=== PATIENT | male | born 1940 | race Caucasian/White ===

== ENCOUNTER 2021-12-23 14:20 | Emergency (ER) | payer MEDICARE, SELFPAY ==
--- NOTE | ~2021-12-23 | CT_ITS ---
EXAMINATION: CT HEAD WITHOUT CONTRAST CLINICAL INFORMATION: Fall, altered mental status. COMPARISON: MR brain dated from 03/17/2020. TECHNIQUE: Contiguous axial imaging was performed from the skull base to vertex without intravenous administration of contrast. This CT examination was performed using dose optimization techniques as appropriate, variously including the following: *Automated exposure control *Adjustment of mA and/or kV according to patient size (this includes techniques or standardized protocols for targeted exams where dose is matched to indication/reason for exam; i.e. extremities or head) *Use of iterative reconstruction technique DLP: 699 mGy-cm FINDINGS: There is no evidence of acute intracranial hemorrhage or edematous territorial infarction. Scattered hypoattenuation in the periventricular and deep white matter are consistent with moderate microangiopathy. Wade-white matter differentiation is preserved. Proportional prominence of the ventricles and sulcal spaces. No evidence for obstructive hydrocephalus. No abnormal mass effect or midline shift. No extra-axial fluid collections. No acute soft tissue or osseous abnormalities. Mucosal thickening of the ethmoidal air cells and left frontal sinus. Leftward nasal septal deviation. Bilateral lens extraction. CT/CT head/brain wo con IMPRESSION: No evidence of acute intracranial hemorrhage or edematous territorial infarction.
[2021-12-23 15:06] VITALS: BP 137/65; PULSE 74; RESP 14; TEMP 36.7; O2SAT 97; BMI 22.9
--- NOTE | 2021-12-23 15:25 | ED.GENADULT ---
HPI - General Adult General Chief complaint: General Medical Stated complaint: AMS Time Seen by Provider: 12/23/21 15:25 Source: EMS Mode of arrival: EMS Limitations: altered mental status History of Present Illness HPI narrative: Patient is brought to the emergency room by EMS. Per EMS, earlier today, elderly services where the patient and his 's residence checking on them. It is unclear why they were asked to bring the back to the emergency room. Per EMS, the patient started screaming, seemed altered, there was no one else at home, they felt that the patient could not be left alone since he was altered. On arrival to the emergency room, patient is calm, cooperative. Of note, the patient and his were here yesterday. The patient's was the patient yesterday for a fall. Who was admitted to the hospitalist service. Mr. Lynch ask the hospitalist to discharge Mrs. Lynch home. The left against medical advice despite the doctor's warnings. Also, I was informed by the staff, that yesterday while the patient's was in the room, Mr. Lynch fell out of his wheelchair. Per Mr. Lynch, he remembers that he was trying to get up from his wheelchair, the breaks were not secured, and he fell to the ground. Per patient's words, he did not fall, he slid out of his chair. The staff reports that they tried to convince the patient to check in for evaluation. Patient was alert and oriented x3, and he refused to check in. Today patient has no complaints. Patient is agreeable to get a workup Unfortunately, patient is a poor historian as well. Patient seems forgetful. Patient has assisted medications with him. Patient is taking carbidopa/ levodopa. Patient states that he has no medical history including Parkinson's. Related Data Allergies Allergy/AdvReac Type Severity Reaction Status Date / Time No Known Allergies Allergy Unverified 07/03/20 15:18 [No Known Allergies*] Review of Systems Review of Systems: Constitutional : No Weight loss, No Fever, No Chills, No Night Sweats, No Fatigue, No Malaise ENT/Mouth : No Hearing loss, No Ear Pain, No Nasal Congestion, No Sinus Pain, No Hoarseness, No sore throat, No Rhinorrhea, No Swallowing Difficulty Eyes: No Eye Pain, No Swelling, No Redness, No Foreign Body, No Discharge, No Vision Changes Cardiovascular : No Chest Pain, No SOB, No Dyspnea on Exertion, No Orthopnea, No Edema, No Palpitations Respiratory : No Cough, No Sputum, No Wheezing, No Smoke Exposure, No Dyspnea Gastrointestinal : No Nausea, No Vomiting, No Diarrhea, No Constipation, No abdominal Pain, No Hematochezia, No Melena Genitourinary : no irregular bleeding, No Dysuria, No Urinary Frequency, No Hematuria, No Urinary Incontinence, No Urgency, No Flank Pain, No Urinary Flow Changes, No Hesitancy Musculoskeletal : No joint pain, No Myalgias, No Joint Swelling Skin : No Skin Lesions, No rash Neuro : No Weakness, No Numbness, No Paresthesias, No Loss of Consciousness, No Dizziness, No Headache Psych : No Anxiety/Panic, No Depression, No SI/HI/AH/VH Heme/Lymph: No Bruising, No Bleeding,No Lymphadenopathy Endocrine : No Polyuria, No Polydipsia, No Temperature Intolerance [facility] Past Medical History Medical History (Updated 12/23/21 @ 16:16 by Shikha Bowie MD) Hypercholesterolemia Parkinsons disease Social History Social History Advance Directives: No Advance Directives Information Provided: No Physical Exam ED Vital Signs: Vital Signs - 24 hr 12/23/21 15:06 Temperature 98.0 F Pulse Rate 74 Respiratory Rate 14 Blood Pressure 137/65 Pulse Oximetry 97 BMI result Body Mass Index 22.9 Const Other: Appearance: Alert. Oriented X3. No acute distress. Eyes: Pupils equal, round and reactive to light. ENT: Pharynx normal. Neck: Normal inspection. Neck supple. No lymph nodes noted. No crepitus CVS: Normal heart rate and rhythm. Pulses normal. Normal S1 and S2 Respiratory: No respiratory distress. Breath sounds normal. No Wheezing. No rales Abdomen: Soft and nontender. No rigidity. No distention Skin: Skin warm and dry. Normal skin color. Normal skin turgor. Extremities: No lower extremity edema. Patient is not steady on his feet. Neuro: Oriented X 3. No motor deficit. No sensory deficit. Moving all extermities. No slurred speech. Course Course Course Narrative: Patient accepted the workup including blood work, urinalysis and head CT. We are trying to get in touch with elderly services to get more information. Patient and his have no healthcare proxy or next of kin other than each other listed in the medical record Patient will likely need case management consult. Sign-out given to Dr. Dewitt Discharge Plan Discharge Clinical Impression: Fall Patient Disposition: Still a Patient
--- NOTE | 2021-12-23 15:29 | ECG_ITS ---
Test Reason : WEAKNESS Blood Pressure : / mmHG Vent. Rate : 077 BPM Atrial Rate : 077 BPM P-R Int : 174 ms QRS Dur : 124 ms QT Int : 418 ms P-R-T Axes : 055 075 009 degrees QTc Int : 473 ms Normal sinus rhythm with Premature atrial complexes Right bundle branch block Possible Lateral infarct , age undetermined Abnormal ECG No previous ECGs available Referred By: Shikha Bowie Electronically Signed By:MANISH JIMENEZ MD
--- NOTE | 2021-12-23 16:11 | MHC.CM.ED ---
Patient brought to ER via EMS. [facility] was at the house to meet with patient's Tali. EMS was called for Tali d/t AMS. When EMS arrived, patient became upset and was brought to the ER for eval. PCP is at [facility] in [place]. No HCP on file at [facility]. No HCP on file at PCP's office. Work up is pending. Continue to monitor for d/c needs.
[2021-12-23 16:33] LABS: MANUAL DIFF FLAG NO
[2021-12-23 16:37] LABS: Basophils Percent Auto 0.5 % (0-2); Eosinophils Absolute Auto 0.1 X10*3/uL (0.0-0.4); Eosinophils Percent Auto 1.4 % (0-4); Hematocrit 41.6 % (42.0-52.0); Hemoglobin 13.6 g/dl (14.0-18.0); Imm Gran Abs Auto 0.02 X10*3/uL (0.00-0.03); Imm Gran Pct Auto 0.2 % (0.0-0.4); Lymphocytes Percent Auto 24.3 % (20-40); Mean Corpuscular HGB Conc 32.7 g/dl (31.0-36.0); Mean Corpuscular Hemoglobin 29.2 pg (27.0-33.0); Mean Corpuscular Volume 89.3 fL (80.0-98.0); Mean Platelet Volume 9.6 fL (9.4-12.4); Monocytes Absolute Auto 0.6 X10*3/uL (0.1-1.2); Monocytes Percent Auto 7.6 % (2-11); Neutrophils Absolute Auto 5.4 x10*3/uL (2.0-8.3); Platelet Count 258 X10*3/uL (160-400); Red Blood Count 4.66 X10*6/uL (4.60-5.80); Red Cell Distribution Width 13.2 % (11.0-16.0); White Blood Count 8.1 X10*3/uL (4.8-10.8)
[2021-12-23 16:49] LABS: Alanine Aminotransferase 16 U/L (0-40); Albumin Level 4.1 g/dL (3.5-5.0); Alkaline Phosphatase 70 U/L (39-117); Anion Gap 10 (12-20); Aspartate Amino Transferase 17 U/L (5-37); Bilirubin Direct 0.4 mg/dL (0.0-0.5); Bilirubin Total 0.9 mg/dL (0.0-1.0); Blood Urea Nitrogen 24 mg/dL (9-16); Calcium 9.1 mg/dL (8.4-10.2); Carbon Dioxide 28 mmol/L (22-29); Chloride 106 mmol/L (96-108); Creatinine Clr Calc Pharmacy 59.2; Estimated Glomerular Filt Rate > 60; Glucose Random 179 mg/dL (60-115); Sodium 140 mmol/L (135-145); Total Protein 6.9 g/dL (6.5-8.0)
[2021-12-23 17:28] VITALS: BP 136/69; PULSE 68; RESP 18; TEMP 36.8; O2SAT 96
--- NOTE | 2021-12-23 18:42 | MHC.CM.ED ---
CM met with patient. Pt is A&Ox3. Pt tells CM he has a walker and a cane. He is fully vaccinated and boosted with Pfizer against Covid19. He tells CM he has meals on wheels and his neighbor does lawn care and snow removal. Pt still drives. Reviewed HCP. Pt acknowledges understanding and requests that his daughter, Munira Paul ([phone]) be his HCP. Forms reviewed and signed per protocol. Copies given and uploaded into [facility]. CM to follow for d/c needs.
--- NOTE | 2021-12-23 18:47 | MHC.CM.ED ---
Dr Dewitt spoke with Munira Paul, daughter and HCP via speaker phone with CM present. Discussed with patient his 's care and hx at [facility] over past 2 days, including his concern that she had a FL and needs further observation, and will be admitted. Also discussed that as mandated reporters, the hospital must file with elder at risk when their are concerns. There were concerns because the patient and his decided that she should sign out AMA yesterday. Munira is agreeable to her mother being hospitalized. Dr Dewitt also expressed concerns over patients capacity, and Munira felt that her father could make his own decisions and did not need a psychiatry consult for capacity. Munira expressed concerns regarding her father getting home tonight, and requested that a cab be provided that could help her father into the home. Explained that hospital could not ensure that he father had help getting into his home. Munira asked that CM obtain his father's neighbor's telephone number so she can request that he provide transportation home. CM provided telephone number, Daniel ([phone]). Awaiting return call regarding transportation home. CM to follow for d/c needs.
[2021-12-23 18:53] LABS: Appearance Urine CLEAR; Color Urine YELLOW; Glucose Urine UA NEG (NEG); Leukocyte Esterase Urine NEG (NEG); Nitrite Urine NEG (NEG); UACC Culture Trigger NO; Urine Blood 1+ (NEG); Urine Ketones 5 MG/DL (NEG); Urine Protein TRACE MG/DL (NEG-TRACE)
[2021-12-23 18:57] LABS: Squamous Epithelial Cell Urine 1+ /LPF; WBC Urine 0-2 /HPF (0-4)
--- NOTE | 2021-12-23 19:36 | MHC.CM.ED ---
Pt to be d/c home. Neighbor will provide transportation. CM spoke with daughter, Munira, and son, Florencio. They both tell CM that they have a family plan for increased care for their parents as warranted. There are funds to care for them. Daughter visits twice a week and provides home services. Plan is for Munira to provide live in care for her parents. Munira can composite layup worker. Munira will be in from [place] in the morning. Plan is to stay till Tuesday. Munira given CM contact information. Pt awaiting ride home.
--- NOTE | 2021-12-23 19:52 | PHA.MEDREC ---
Addendum entered by Shravan Argueta [facility] 12/23/21 19:52: PATIENT BEING DISCHARGED HOME, MED REC WAS NOT NECESSARY AND RESULTED IN A WASTE OF TIME FOR ALL INVOLVED. Original Note: Pharmacy Consult ? Medication Reconciliation Pharmacy has completed the medication reconciliation.
== END 2021-12-23 20:04 | disposition home or self-care (01) ==
PROVIDERS: Emergency Medicine; Emergency Provider Emergency Medicine Emergency Medical Services; PCP Physician Assistant
DX: S09.90XA Unspecified injury of head, initial encounter (principal); R41.82 Altered mental status, unspecified; G44.309 Post-traumatic headache, unspecified, not intractable; W05.0XXA Fall from non-moving wheelchair, initial encounter; Y93.9 Activity, unspecified; Y92.9 Unspecified place or not applicable; Y99.9 Unspecified external cause status; Z79.899 Other long term (current) drug therapy
CPT/HCPCS: 36415; 70450; 80048; 80076; 81001; 85025; 93005; 99284

== ENCOUNTER → 2022-12-03 09:03 | Outpatient (BNVA) | payer MEDICARE, SELFPAY | PROVIDERS: PCP Physician Assistant; Visit Provider Psychiatry & Neurology Neurology | DX: G20 Parkinson's disease (principal); R40.0 Somnolence; R53.1 Weakness | CPT/HCPCS: 99202 ==

== ENCOUNTER 2023-07-04 09:22 | Outpatient (AMB) | payer MEDICARE, SELFPAY ==
--- NOTE | 2023-07-04 09:32 | A.OFFVIS_ITS ---
Intake Vital Signs 07/04/23 09:37 Weight 149 lb 6 oz BP 92/40 L Blood Pressure Location Rt brachial Position Sitting Pulse 57 Pulse Source Pulse Oximeter Pulse Oximetry (%) 95 Oxygen Delivery Method Room Air Intake Visit Reasons: 3m follow up PARKINSONS-lvm Intake Note: F/U PArkinson Connie Scratcher Required: No Allergies No Known Allergies [No Known Allergies*] Allergy (Unverified 07/04/23 09:32) Medication List - Last Reconciled 07/04/23 by Jacque Mtz MD albuterol sulfate 90 mcg/actuation 2 puffs inhalation Q4H PRN ammonium lactate 12% appl topical carbidopa-levodopa 25-100 mg 1 tab PO TID docusate sodium 100 mg PO BEDTIME fluticasone propionate 110 mcg/actuation (Flovent HFA) 1 puff inhalation BID gabapentin 100 mg PO TID ketoconazole 2% 1 appl topical tamsulosin 0.8 mg PO BEDTIME valsartan 160 mg PO DAILY HPI HPI Comments History of Present Illness Details 82y/o Right handed male comes for [facility] follow up of parkinsonism.He noticed mild improvement with increase in carbidopa /levodopa 25/100 qid .He did not like PT at [facility]. He was diagnosed 2 1/2 years ago when her presented with tremors by Dr. Ray. The tremors are mostly in his left . He also has memory issues and tries to compensate by taking notes.He has excessive daytime sleepiness. He also has vivid dreams and some acting out.He has hypophonia, drooling. He is worried but not depressed. He has anxiety.He feels his handwriting is sloppier.He is slower in his activities. He has had multiple falls . His balance is off. He uses a walker now. He denies hallucinations. No dizziness. He has constipation- uses OTC stool softener.He has urinary frequency and has accidents. He had a mild head injury 3 years ago.No exposure to neuroleptics. [facility] Medical History Parkinson's disease Aortic stenosis Lumbar spine pain Hypothyroidism COPD (chronic obstructive pulmonary disease) Peptic ulcer Renal calculi HTN (hypertension) Diabetes Prostate CA Parkinsons disease Hypercholesterolemia Family History Mother PCOS (polycystic ovarian syndrome) Social History Alcohol intake: never Patient Tobacco Use Status: Never used Tobacco Use of substances other than those prescribed or required for medical reasons: No Physical Exam Vital Signs: Last Vital Signs Pulse 57 07/04/23 09:37 BP 92/40 L 07/04/23 09:37 Pulse Ox 95 07/04/23 09:37 Oxygen Delivery Method Room Air 07/04/23 09:37 Const General: cooperative and comfortable Nutritional Appearance: average body habitus Orientation/consciousness: patient oriented x3 Limitations: physical limitations HEENT Head: Yes normal to inspection Neuro Other: Moderately decreased facial expression and blink Left UE mild rest tremors Chava cogwheel rigidity L>R Fine finger movements- severely decreased L>R Foot taps- severely decreased L>R Moderate hypophonia Gait- stooped, difficulty getting up from chair , small steps with walker , difficulty turning General: patient oriented x3 and moves all extremities Cranial nerves: Yes Facial sensation intact/muscles of mastication intact, Yes Bilaterally intact EOM present, Yes Nystagmus not present, Yes Normal facial strength present, Yes Midline tongue present, Yes Symmetric palate elevation present and Yes Ability to bilaterally elevate shoulders present Cognition (Neuro): normal cognition Coordination: [id number] test normal Psych Appearance: grossly normal Assessment & Plan Assessment & Plan (1) Parkinson's disease: Code(s): G20 - Parkinson's disease Plan Continue sinemet 25/100 qid Increase fluids Increase physical activity . will consider PT if patient agrees. Medications: Changed From carbidopa-levodopa 25-100 mg 1 tab PO QID 120 tabs 3RF To carbidopa-levodopa 25-100 mg 1 tab PO TID Coding Level of Care Code Est Pt Level 4 (24099) Diagnoses Parkinson's disease G20
[2023-07-04 09:37] VITALS: BP 92/40; PULSE 57; O2SAT 95
== END 2023-07-04 10:22 | disposition home or self-care (01) ==
PROVIDERS: Visit Provider Psychiatry & Neurology Neurology
DX: G20 Parkinson's disease (principal)
CPT/HCPCS: 99214

== ENCOUNTER → 2023-07-04 09:22 | Outpatient (BNVA) | payer MEDICARE, SELFPAY | PROVIDERS: Visit Provider Psychiatry & Neurology Neurology | DX: G20 Parkinson's disease (principal) | CPT/HCPCS: 99212 ==

== ENCOUNTER 2024-01-02 09:14 | Outpatient (AMB) | payer MEDICARE, SELFPAY ==
--- NOTE | 2024-01-02 09:25 | A.OFFVIS_ITS ---
Intake Vital Signs 01/02/24 09:28 Height 5 ft 6 in Weight 149 lb 2 oz BMI 24.1 BP 122/72 Blood Pressure Location Rt brachial Position Sitting Respiration 16 Pulse 65 Pulse Source Pulse Oximeter Pulse Oximetry (%) 98 Oxygen Delivery Method Room Air Intake Visit Reasons: 6 mnts f/u appt-LVM Intake Note: Pt presents for 6 month follow up for Parkinson's. Sales Consultant Insurance Required: No Allergies No Known Allergies [No Known Allergies*] Allergy (Unverified 01/02/24 09:32) Medication List - Last Reconciled 01/02/24 by Jacque Mtz MD albuterol sulfate 90 mcg/actuation 2 puffs inhalation Q4H PRN ammonium lactate 12% appl topical carbidopa-levodopa 25-100 mg 1 tab PO QID 30 days docusate sodium 100 mg PO BEDTIME fluticasone propionate 110 mcg/actuation (Flovent HFA) 1 puff inhalation BID gabapentin 100 mg PO TID ketoconazole 2% 1 appl topical tamsulosin 0.8 mg PO BEDTIME valsartan 160 mg PO DAILY HPI HPI Comments History of Present Illness Details 82y/o Right handed male comes for [facility] follow up of parkinsonism.He noticed mild improvement with increase in carbidopa /levodopa 25/100 qid .He is drinking about 7 glasses of water. no falls , he increased his physical activity. He was diagnosed 3 years ago when her presented with tremors by Dr. Ray. The tremors are mostly in his left . He also has memory issues and tries to compensate by taking notes.He has excessive daytime sleepiness. He also has vivid dreams and some acting out.He has hypophonia, drooling. He is worried but not depressed. He has anxiety.He feels his handwriting is sloppier.He is slower in his activities. His balance is off. He uses a walker now. He denies hallucinations. No dizziness. He has constipation- uses OTC stool softener.He has urinary frequency and has accidents. He had a mild head injury 3 years ago.No exposure to neuroleptics. [facility] Medical History Parkinson's 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 Parkinsonism Parkinson's disease Aortic stenosis Lumbar spine pain Hypothyroidism COPD (chronic obstructive pulmonary disease) Peptic ulcer Renal calculi HTN (hypertension) Diabetes Prostate CA Parkinsons disease Hypercholesterolemia Family History Mother PCOS (polycystic ovarian syndrome) Social History Alcohol intake: never Patient Tobacco Use Status: Never used Tobacco Physical Exam Vital Signs: Last Vital Signs Pulse 65 01/02/24 09:28 Resp 16 01/02/24 09:28 BP 122/72 01/02/24 09:28 Pulse Ox 98 01/02/24 09:28 Oxygen Delivery Method Room Air 01/02/24 09:28 BMI result Body Mass Index 24.1 Const General: cooperative and comfortable Nutritional Appearance: average body habitus Orientation/consciousness: patient oriented x3 Limitations: physical limitations HEENT Head: Yes normal to inspection Neuro Other: Moderately decreased facial expression and blink No tremors Chava cogwheel rigidity L>R Fine finger movements- severely decreased L>R Foot taps- severely decreased L>R Moderate hypophonia Gait- stooped, difficulty getting up from chair , small steps with walker , difficulty turning General: patient oriented x3 and moves all extremities Cranial nerves: Yes Facial sensation intact/muscles of mastication intact, Yes Bilaterally intact EOM present, Yes Nystagmus not present, Yes Normal facial strength present, Yes Midline tongue present, Yes Symmetric palate elevation present and Yes Ability to bilaterally elevate shoulders present Cognition (Neuro): normal cognition Coordination: [id number] test normal Psych Appearance: grossly normal Assessment & Plan Assessment & Plan (1) Parkinson's 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: Code(s): G20.A1 - Parkinson's 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, without mention of fluctuations Plan Continue sinemet 25/100 tid Increase fluids Increase physical activity . will consider PT if patient agrees. Medications: Changed From carbidopa-levodopa 25-100 mg 1 tab PO QID 30 days 120 tabs 1RF To carbidopa-levodopa 25-100 mg 1 tab PO TID 90 tabs 1RF 30 days Coding Level of Care Code Est Pt Level 4 (74860) Diagnoses Parkinson's 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 G20.A1
[2024-01-02 09:28] VITALS: BP 122/72; PULSE 65; RESP 16; O2SAT 98; BMI 24.1
== END 2024-01-02 10:13 | disposition home or self-care (01) ==
PROVIDERS: PCP Internal Medicine; Visit Provider Psychiatry & Neurology Neurology
DX: G20.A1 Parkinson's 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, without mention of fluctuations (principal)
CPT/HCPCS: 99214

== ENCOUNTER → 2024-01-02 09:14 | Outpatient (BNVA) | payer MEDICARE, SELFPAY | PROVIDERS: PCP Internal Medicine; Visit Provider Psychiatry & Neurology Neurology | DX: G20.A1 Parkinson's 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, without mention of fluctuations (principal) | CPT/HCPCS: 99212 ==

== ENCOUNTER 2024-07-12 12:53 | Outpatient (AMB) | payer MEDICARE, BC, SELFPAY ==
[2024-07-12 13:04] VITALS: BP 118/60; PULSE 66; O2SAT 95; BMI 24.9
--- NOTE | 2024-07-12 13:04 | A.OFFVIS_ITS ---
Vital Signs 07/12/24 13:04 Height 5 ft 6 in Weight 154 lb 6 oz BMI 24.9 BP 118/60 Blood Pressure Location Lt brachial Position Sitting Pulse 66 Pulse Source Pulse Oximeter Pulse Oximetry (%) 95 Oxygen Delivery Method Room Air Intake Visit Reasons: 6 Month F/U Intake Note: Patient presents for a 6 mo f/u- Parkinson's disease. 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 Accompanied by: Daughter Allergies No Known Allergies [No Known Allergies*] Allergy (Verified 07/12/24 13:07) Medication List - Last Reconciled 07/12/24 by Jacque Mtz MD albuterol sulfate 90 mcg/actuation 2 puffs inhalation Q4H PRN ammonium lactate 12% appl topical carbidopa-levodopa 25-100 mg 1 tab PO QID 30 days docusate sodium 100 mg PO BEDTIME fluticasone propionate 110 mcg/actuation (Flovent HFA) 1 puff inhalation BID gabapentin 100 mg PO QID ketoconazole 2% 1 appl topical tamsulosin 0.8 mg PO BEDTIME valsartan 160 mg PO DAILY HPI Comments Details: 83y/o Right handed male comes for further follow up of parkinsonism.He had a fall during PT but did respond to PT . He is drinking about 6 glasses He was diagnosed 3 years ago when her presented with tremors by Dr. Ray. The tremors are mostly in his left .He has excessive daytime sleepiness. He also has vivid dreams and some acting out.He has hypophonia, drooling. He is worried but not depressed. He has anxiety.He feels his handwriting is sloppier.He is slower in his activities. His balance is off. He uses a walker now. He denies hallucinations. No dizziness. He has constipation- uses OTC stool softener.He has urinary frequency and has accidents. He had a mild head injury 3 years ago.No exposure to neuroleptics. [facility] Medical History Parkinson's 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 Parkinsonism Parkinson's disease Aortic stenosis Lumbar spine pain Hypothyroidism COPD (chronic obstructive pulmonary disease) Peptic ulcer Renal calculi HTN (hypertension) Diabetes Prostate CA Parkinsons disease Hypercholesterolemia Family History Mother PCOS (polycystic ovarian syndrome) Social History Alcohol intake: never Patient Tobacco Use Status: Never used Tobacco Physical Exam Vital Signs: Last Vital Signs Pulse 66 07/12/24 13:04 BP 118/60 07/12/24 13:04 Pulse Ox 95 07/12/24 13:04 Oxygen Delivery Method Room Air 07/12/24 13:04 BMI result Body Mass Index 24.9 Const General: cooperative and comfortable Nutritional Appearance: average body habitus Orientation/consciousness: patient oriented x3 Limitations: physical limitations HEENT Head: Yes normal to inspection Neuro Other: Moderately decreased facial expression and blink No tremors Chava cogwheel rigidity L>R Fine finger movements- severely decreased L>R Foot taps- severely decreased L>R Moderate hypophonia Gait- stooped, difficulty getting up from chair , small steps with walker , difficulty turning General: patient oriented x3 and moves all extremities Cranial nerves: Yes Facial sensation intact/muscles of mastication intact, Yes Bilaterally intact EOM present, Yes Nystagmus not present, Yes Normal facial strength present, Yes Midline tongue present, Yes Symmetric palate elevation present and Yes Ability to bilaterally elevate shoulders present Cognition (Neuro): normal cognition Coordination: [id number] test normal Psych Appearance: grossly normal Assessment & Plan Assessment & Plan (1) Parkinson's 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: Code(s): G20.A1 - Parkinson's 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, without mention of fluctuations Category: Medical Qualifiers: Fluctuating manifestations: without fluctuating manifestations Qualified Code(s): G20.A1 - Parkinson's 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, without mention of fluctuations Plan Increase sinemet 25/100 qid Increase fluids Increase physical activity . change gabapentin 100mg qam and 300mg qhs Medications: Changed From gabapentin 100 mg PO QID To gabapentin 1 cap qam and 3 caps qhs orally; From carbidopa-levodopa 25-100 mg 1 tab PO TID 30 days 90 tabs 1RF To carbidopa-levodopa 25-100 mg 1 tab PO QID 30 days 120 tabs 1RF Coding Level of Care Code Est Pt Level 4 (98939) Diagnoses Parkinson's 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 or fluctuating manifestations G20.A1 Fluctuating manifestations: without fluctuating manifestations
== END 2024-07-12 14:00 | disposition home or self-care (01) ==
PROVIDERS: PCP Internal Medicine; Visit Provider Psychiatry & Neurology Neurology
DX: G20.A1 Parkinson's 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, without mention of fluctuations (principal)
CPT/HCPCS: 99214

== ENCOUNTER → 2024-07-12 12:53 | Outpatient (BNVA) | payer MEDICARE, SELFPAY | PROVIDERS: PCP Internal Medicine; Visit Provider Psychiatry & Neurology Neurology | DX: G20.A1 Parkinson's 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, without mention of fluctuations (principal) | CPT/HCPCS: 99212 ==

== ENCOUNTER 2025-03-13 20:26 | Emergency (ER) | payer MEDICARE, SELFPAY ==
--- NOTE | 2025-03-13 | ECG_ITS ---
Test Reason : FALL Blood Pressure : */* mmHG Vent. Rate : 60 BPM Atrial Rate : 60 BPM P-R Int : 182 ms QRS Dur : 140 ms QT Int : 440 ms P-R-T Axes : * -43 1 degrees QTcB Int : 440 ms Poor data quality Sinus rhythm Left axis deviation Right bundle branch block Abnormal ECG When compared with ECG of 23-Dec-2021 16:03, Poor data quality in current ECG precludes serial comparison Referred By: Generic ED Physician Electronically Signed By: MANISH JIMENEZ MD
--- NOTE | ~2025-03-13 | CT_ITS ---
CLINICAL HISTORY: multiple falls, parkinsons CT cervical spine without contrast Comparison: None available Findings: No acute fracture of the cervical spine. Straightening of the cervical lordosis. Trace anterolisthesis of the C6-C7 and mild anterolisthesis at cervicothoracic junction. Disc osteophyte complexes, ligament calcifications, and facet arthropathy are multifocal. Mild spinal canal stenosis by CT from C4-C5 to C6-C7. Multifocal foraminal narrowing including [id number] at C3-C4 to C6-C7. No paraspinal hematoma. Vascular calcifications are noted. Mild scarring of the imaged lung apices. Imaged esophagus is patulous. Motion artifacts noted. IMPRESSION: No acute fracture of the cervical spine. This document has been electronically signed by: Ivan Mosqueda MD on 03/13/2025 22:54:42
--- NOTE | ~2025-03-13 | CT_ITS ---
CLINICAL HISTORY: falls, AMS, hx parkinsons CT head without contrast Comparison: None available Findings: No intra-axial hemorrhage. No midline shift or hydrocephalus. Vascular calcifications noted including imaged carotid siphons. Moderate volume loss is generalized. No midline shift or hydrocephalus. Mild white matter lesions likely due to small-vessel ischemic disease. No arterial territorial infarction by CT. Partially empty sella. Fluid and mucosal thickening of the paranasal sinuses are multifocal. Trace left mastoid effusion. No acute skull fracture. IMPRESSION: 1. No acute intracranial abnormality by CT. 2. No acute skull fracture. 3. Fluid and mucosal thickening of the paranasal sinuses, as can be associated with sinusitis. This document has been electronically signed by: Ivan Mosqueda MD on 03/13/2025 22:59:50
--- NOTE | ~2025-03-13 | CT_ITS ---
CLINICAL HISTORY: FALL, MILD PAIN CT lumbar spine without contrast Comparison: None Findings: Mild height loss of the T12 compression fracture is age indeterminate by CT and favored to be old/chronic given sclerosis. This is accentuated by upper endplate Schmorl's node of the adjacent vacuum disc phenomenon at T11-T12. Minimal retropulsion with mild spinal stenosis at T11-T12 and minimal spinal stenosis of the T12-L1 by CT. Grade 2 anterolisthesis approaching grade 3 at L5-S1. Bilateral spondylolysis of the L5. Additional vacuum disc phenomenon is multifocal. Facet arthropathy is also multifocal. Mild spinal stenosis with right foraminal narrowing at L4-L5 and mnqaizru-sl-fwslgs foraminal narrowing at L5-S1 by CT. Mild-moderate spinal canal stenosis at L5-S1 with marked bilateral lateral recess narrowing by CT. Vascular calcifications noted. Subcutaneous edema is partially imaged. Mild wall thickening of the imaged urinary bladder is nonspecific. Nonobstructing nephrolithiasis of the imaged left kidney measures 4 mm. Volume loss of the pancreas is noted in the opyzo-nw-viya. IMPRESSION: 1. Mild height loss of the T12 compression fractures likely old/chronic. 2. 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 3. Degenerative changes with lower lumbar spinal stenosis by CT, and multifocal facet arthropathy. This document has been electronically signed by: Ivan Mosqueda MD on 03/13/2025 23:02:35
[2025-03-13 20:35] VITALS: BP 107/55; BP 118/84; PULSE 63; PULSE 80; RESP 16; TEMP 36.4; O2SAT 96; O2SAT 97; BMI 22.8
[2025-03-13 21:10] LABS: MANUAL DIFF FLAG NO
[2025-03-13 21:14] LABS: Basophils Absolute Auto 0.1 X10*3/uL (0.0-0.2); Basophils Percent Auto 0.8 % (0-2); Eosinophils Absolute Auto 0.2 X10*3/uL (0.0-0.4); Eosinophils Percent Auto 2.9 % (0-4); Hematocrit 36.1 % (42.0-52.0); Imm Gran Abs Auto 0.02 X10*3/uL (0.00-0.03); Imm Gran Pct Auto 0.3 % (0.0-0.4); Lymphocytes Absolute Auto 1.7 X10*3/uL (1.2-4.9); Lymphocytes Percent Auto 23.7 % (20-40); Mean Corpuscular HGB Conc 33.2 g/dl (31.0-36.0); Mean Corpuscular Hemoglobin 29.5 pg (27.0-33.0); Mean Corpuscular Volume 88.7 fL (80.0-98.0); Mean Platelet Volume 9.5 fL (9.4-12.4); Monocytes Absolute Auto 0.7 X10*3/uL (0.1-1.2); Neutrophils Absolute Auto 4.6 x10*3/uL (2.0-8.3); Neutrophils Percent Auto 63.3 % (45-73); Platelet Count 234 X10*3/uL (160-400); Red Blood Count 4.07 X10*6/uL (4.60-5.80); Red Cell Distribution Width 14.2 % (11.0-16.0); White Blood Count 7.3 X10*3/uL (4.8-10.8)
--- NOTE | 2025-03-13 21:20 | ED_ITS ---
HPI - General Adult General Chief complaint: Fall Stated complaint: weakness, lethargy Time Seen by Provider: 03/13/25 21:06 Source: patient, family and EMS Mode of arrival: EMS Limitations: other History of Present Illness ED Provider: Dr. Shikha Bowie HPI narrative: Patient comes to the emergency room accompanied by his daughter. Patient is known to have history of Parkinson's. According to the patient's daughter, the patient's seems to be weaker than usual, more confused, patient had to small falls today. According to the patient's daughter he was able to slide himself down to the floor. Patient's daughter states that usually when patient falls, he is able to get up by himself. However, twice a day, he was not able to do so. To the patient's daughter and the patient's , patient's seems weaker than usual. Patient denies being on blood thinners, denies any headache or neck pain. Denies any significant pain in his buttocks Related Data Home Medications ?Medication ?Instructions ?Recorded ?Confirmed albuterol sulfate 90 mcg/actuation 2 puff inhalation Q4H PRN wheezing 12/23/21 07/12/24 aerosol inhaler docusate sodium 100 mg capsule 100 mg PO BEDTIME 12/23/21 07/12/24 fluticasone propionate 110 1 puff inhalation BID 12/23/21 07/12/24 mcg/actuation HFA aerosol inhaler (Flovent HFA) valsartan 160 mg tablet 160 mg PO DAILY 12/23/21 03/14/25 ammonium lactate 12 % topical cream appl topical 07/04/23 07/12/24 ketoconazole 2 % topical cream 1 appl topical 07/04/23 07/12/24 tamsulosin 0.4 mg capsule 0.4 mg PO 2XD 07/04/23 03/14/25 gabapentin 100 mg capsule 100 mg PO 4-5XD 07/12/24 03/14/25 carbidopa 25 mg-levodopa 100 mg 1 tab PO 3XD 03/14/25 03/14/25 tablet nitrofurantoin macrocrystal 50 mg 50 mg PO QAM 03/14/25 03/14/25 capsule Allergies Allergy/AdvReac Type Severity Reaction Status Date / Time No Known Allergies Allergy Verified 03/13/25 20:37 [No Known Allergies*] Review of Systems 2 Review of Systems: Constitutional : No Weight loss, No Fever, No Chills, No Night Sweats, complaining of worsening generalized weakness ENT/Mouth : No Hearing loss, No Ear Pain, No Nasal Congestion, No Sinus Pain, No Hoarseness, No sore throat, No Rhinorrhea, No Swallowing Difficulty Eyes: No Eye Pain, No Swelling, No Redness, No Foreign Body, No Discharge, No Vision Changes Cardiovascular : No Chest Pain, No SOB, No Dyspnea on Exertion, No Orthopnea, No Edema, No Palpitations Respiratory : No Cough, No Sputum, No Wheezing, No Smoke Exposure, No Dyspnea Gastrointestinal : No Nausea, No Vomiting, No Diarrhea, No Constipation, No abdominal Pain, No Hematochezia, No Melena Genitourinary : no irregular bleeding, No Dysuria, No Urinary Frequency, No Hematuria, No Urinary Incontinence, No Urgency, No Flank Pain, No Urinary Flow Changes, No Hesitancy Musculoskeletal : No significant pain in the buttocks after 2 small falls, No Myalgias, No Joint Swelling Skin : No Skin Lesions, No rash Neuro : No Weakness, No Numbness, No Paresthesias, No Loss of Consciousness, No Dizziness, No Headache Psych : No Anxiety/Panic, No Depression, No SI/HI/AH/VH, No Social Issues, Heme/Lymph: No Bruising, No Bleeding,No Lymphadenopathy Endocrine : No Polyuria, No Polydipsia, No Temperature Intolerance COUNTS INCLUDE 234 BEDS AT THE [facility] Past Medical History Medical History Confusion Parkinson's 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 Parkinsonism Parkinson's disease Aortic stenosis Lumbar spine pain Hypothyroidism COPD (chronic obstructive pulmonary disease) Peptic ulcer Renal calculi HTN (hypertension) Diabetes Prostate CA Parkinsons disease Hypercholesterolemia Family History Family History Mother PCOS (polycystic ovarian syndrome) Social History Social History Alcohol intake: never Patient Tobacco Use Status: Never used Tobacco Smoked in Last 30 Days: No Use of substances other than those prescribed or required for medical reasons: No Advance Directives: Yes Advance Directives on File: Yes Advance Directives Date on File: 12/24/21 Do you have a plan to hurt others: No Plan Physical Exam ED Vital Signs: Vital Signs - 24 hr 03/13/25 20:35 03/13/25 22:00 03/14/25 05:36 Temperature 97.6 F 97.3 F 97.9 F Pulse Rate 63 55 57 Respiratory Rate 16 16 16 Blood Pressure 107/55 L 140/70 H 171/81 H Pulse Oximetry 96 94 96 Oxygen Delivery Method Room Air Room Air Room Air 03/14/25 09:32 Temperature Pulse Rate Respiratory Rate Blood Pressure 122/64 Pulse Oximetry Oxygen Delivery Method BMI result Body Mass Index 22.8 Const Other: Appearance: Alert. Oriented X3. No acute distress. Complaining of weakness Eyes: Pupils equal, round and reactive to light. ENT: Pharynx normal. Neck: Normal inspection. Neck supple. No lymph nodes noted. No crepitus CVS: Normal heart rate and rhythm. Pulses normal. Normal S1 and S2 Respiratory: No respiratory distress. Breath sounds normal. No Wheezing. No rales Abdomen: Soft and nontender. No rigidity. No distention. Skin: Skin warm and dry. Normal skin color. Normal skin turgor. Extremities: No lower extremity edema. No Lacerations. No Rash Neuro: Oriented X 3. No motor deficit. No sensory deficit. Moving all extremities. No slurred speech. CN 2 through 12 grossly intact Psych: calm, cooperative, normal affect Course Course Course Narrative: Patient had 2 falls earlier today, patient has no pain from the falls, did not hit his head or lost consciousness. However, patient does have history of multiple falls recently. Usually able to get up by himself but today he was not able to do so due to weakness. Also, according to the patient's daughter, about 3 months ago patient had a UTI and was treated at [facility]. All of patient's labs and imaging pending 03/14/2025 0939 Linnea Khan PA-C: Observation continues. Case management continues to follow the case. 03/14/2025 1027 Linnea Khan PA-C: Observation care revealed the the patient does not meet medical necessity for hospitalization. Final disposition of home with services discussed with the patient and the patient's daughter. Patient completed observation care at 1027 on 03/14/2025, total time spent in observation care was 11 hours and 6 minutes. Medications Administered Generic Name Dose Route Start Last Admin Trade Name Misti PRN Reason Stop Dose Admin Carbidopa/Levodopa 1 tab 03/14/25 08:00 03/14/25 07:42 Carbidopa/Levodopa 25/100 Tablet PO 1 tab TID@0800,1300,1730 CARLOS Administration Gabapentin 100 mg 03/14/25 08:00 03/14/25 07:41 Gabapentin 100 Mg Capsule PO 100 mg QID@0800,1300,1730,1930 CARLOS Administration Nitrofurantoin Macrocrystals 50 mg 03/14/25 05:15 03/14/25 07:41 Nitrofurantoin Macrocrystal 50 Mg Capsule PO 50 mg DAILY CARLOS Administration Valsartan 160 mg 03/14/25 09:00 03/14/25 09:32 Valsartan 160 Mg Tablet PO 160 mg DAILY CARLOS Administration Protocol Medical Decision Making Medical Decision Making [facility] Narrative: My interpretation of labs: Patient's hematology at baseline, no acute abnormalities, chemistry at baseline, normal LFTs, normal troponin, normal lipase, urinalysis negative for UTI, serology negative for influenza RSV and COVID CT scan of the lumbar spine shows mid height loss of T12 compression fracture, indeterminate age, CT like to be old/chronic given sclerosis No significant abnormality in patient's head cervical spine CT scan. I discussed the above mentioned with the patient. Patient's daughter has various request, after the physical therapy and case management, she will only accept a certain company or VNA and only short-term rehab if needed, patient will discuss the details with PT/case management Differential Diagnosis Differential Diagnoses: The differential diagnosis associated with the presentation includes (UTI, Parkinson's, viral illness) Admission/Observation Consideration of admission/observation: Escalation of care including admission/observation considered (Patient is under physician observation waiting for physical therapy and case management) Lab Data MDM Lab Attestation statement: I reviewed the patient's lab results. 03/13/25 21:05 03/13/25 21:05 Labs: Lab Results 03/13/25 03/13/25 Range/Units 21:05 22:28 WBC 7.3 (4.8-10.8) X10*3/uL RBC 4.07 L (4.60-5.80) X10*6/uL Hgb 12.0 L (14.0-18.0) g/dl Hct 36.1 L (42.0-52.0) % MCV 88.7 (80.0-98.0) fL MCH 29.5 (27.0-33.0) pg MCHC 33.2 (31.0-36.0) g/dl RDW 14.2 (11.0-16.0) % Plt Count 234 (160-400) X10*3/uL MPV 9.5 (9.4-12.4) fL Immature Gran % (Auto) 0.3 (0.0-0.4) % Neut % (Auto) 63.3 (45-73) % Lymph % (Auto) 23.7 (20-40) % [place] % (Auto) 9.0 (2-11) % Eos % (Auto) 2.9 (0-4) % Baso % (Auto) 0.8 (0-2) % Lymph # (Auto) 1.7 (1.2-4.9) X10*3/uL [place] # (Auto) 0.7 (0.1-1.2) X10*3/uL Eos # (Auto) 0.2 (0.0-0.4) X10*3/uL Baso # (Auto) 0.1 (0.0-0.2) X10*3/uL Abs Immat Gran (auto) 0.02 (0.00-0.03) X10*3/uL Absolute Neuts (auto) 4.6 (2.0-8.3) x10*3/uL Absolute Nucleated RBC 0.000 (0.0-0.012) X10*3/uL Nucleated RBC % (auto) 0.0 (0.0-0.2) /100WBC Sodium 139 (135-145) mmol/L Potassium 4.1 (3.3-5.1) mmol/L Chloride 106 (96-108) mmol/L Carbon Dioxide 27 (22-29) mmol/L Anion Gap 10 L (12-20) BUN 25 H (9-16) mg/dL Creatinine 1.06 (0.5-1.4) mg/dL Estim Creat Clear Calc 49.5 Estimated GFR > 60 Random Glucose 148 H (60-115) mg/dL Calcium 8.9 (8.4-10.2) mg/dL Total Bilirubin 0.3 (0.0-1.0) mg/dL AST 20 (5-37) U/L ALT < 6 (0-40) U/L Alkaline Phosphatase 73 (39-117) U/L Troponin I High Sens 10.0 (<3.5-35.0) ng/L Total Protein 6.5 (6.5-8.0) g/dL Albumin 3.5 (3.5-5.0) g/dL Lipase 46 (8-78) U/L Urine Color Yellow Urine Appearance Clear Urine pH 5.5 (5.0-9.0) Ur Specific [place] 1.020 (1.005-1.025) Urine Protein Trace (Neg-Trace) mg/dL Urine Glucose (UA) Negative (Negative) mg/dL Urine Ketones Trace (Negative) mg/dL Urine Blood Negative (Negative) Urine Nitrite Negative (Negative) Ur Leukocyte Esterase Negative (Negative) Influenza Type A (PCR) NEGATIVE (Negative) Influenza Type B (PCR) NEGATIVE (Negative) RSV RNA Qual (PCR) NEGATIVE (Negative) SARS-CoV-2 RNA (RT-PCR) NEGATIVE (Negative) Independent Interpretation I performed an independent interpretation of an: CT Scan Radiology Impression Discussion of test interpretation with radiology: I have reviewed the radiologist's reading. Radiologist Impression: . Mild height loss of the T12 compression fractures likely old/chronic. 2. 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 3. Degenerative changes with lower lumbar spinal stenosis by CT, and multifocal facet arthropathy. 1. No acute intracranial abnormality by CT. 2. No acute skull fracture. 3. Fluid and mucosal thickening of the paranasal sinuses, as can be associated with sinusitis. No acute fracture of the cervical spine. Critical Care Time Critical Care Time Critical Care Time: Yes Total Critical Care Time: 45 Attestation: I have personally provided critical care time. Time includes review of lab data, radiology results, discussion with consultants, and monitoring for potential decompensation. Intervention performed as documented. Discharge Plan Discharge Clinical Impression: Weakness, Fall Patient Disposition: Home, Self-Care Instructions: Weakness (ED) Additional Instructions: Follow up with your primary care provider. Return to the emergency department immediately if your symptoms worsen or if you develop any numbness, tingling, dizziness, shortness of breath, difficulty breathing, chest pain, blurry vision, loss of vision, nausea, vomiting, abdominal pain, fever, chills, back pain, or any other complaints. Please see the information below about our Patient Portal. If you are not yet enrolled in the [facility] Patient Portal, you will receive an enrollment email invitation following your visit to any [facility] setting. You may also self-enroll in the Patient Portal by visiting our website: [email or web address] The following information is required to access the Patient Portal: - Your [facility] Medical Record Number - Your personal home email address (must match what is in your electronic medical record, Registration staff can assist with this) - Name - Date of Capabilities of the Patient Portal: - Message some providers - View upcoming appointments - Access your health summary, medical history, and visit history - View current conditions and allergies - View procedure and lab results - View your medications, including guidelines, side effects, and precautions - Complete pre-appointment questionnaires requested by your provider - Ready summary reports of your office visits and procedures To access the Patient Portal Mobile Janet, follow these directions: - Search X[employer] Software in the Janet Store or Tweegee Store - Download the Janet - Search for [facility] - Enter your login/password Prescriptions: No Action albuterol sulfate 90 mcg/actuation HFA aerosol inhaler 2 puff inhalation Q4H PRN (Reason: wheezing) Flovent HFA 110 mcg/actuation HFA aerosol inhaler 1 puff inhalation BID valsartan 160 mg tablet 160 mg PO DAILY docusate sodium 100 mg Capsule 100 mg PO BEDTIME nitrofurantoin macrocrystal 50 mg capsule 50 mg PO QAM carbidopa-levodopa 25-100 mg tablet 1 tab PO 3XD tamsulosin 0.4 mg capsule 0.4 mg PO 2XD ammonium lactate 12 % cream topical ketoconazole 2 % cream 1 appl topical gabapentin 100 mg capsule 100 mg PO 4-5XD Rx Instructions: 4XD Print Language: Kiswahili
[2025-03-13 21:27] LABS: Alanine Aminotransferase < 6 U/L (0-40); Albumin Level 3.5 g/dL (3.5-5.0); Alkaline Phosphatase 73 U/L (39-117); Anion Gap 10 (12-20); Aspartate Amino Transferase 20 U/L (5-37); Bilirubin Total 0.3 mg/dL (0.0-1.0); Blood Urea Nitrogen 25 mg/dL (9-16); Calcium 8.9 mg/dL (8.4-10.2); Carbon Dioxide 27 mmol/L (22-29); Chloride 106 mmol/L (96-108); Creatinine Clr Calc Pharmacy 49.5; Estimated Glomerular Filt Rate > 60; Glucose Random 148 mg/dL (60-115); Lipase 46 U/L (8-78); Potassium 4.1 mmol/L (3.3-5.1); Sodium 139 mmol/L (135-145); Total Protein 6.5 g/dL (6.5-8.0)
--- OUTSIDE RECORDS SUMMARY | 2025-03-13 21:27 | XMS_ITS ---
Author Organization [facility] Address [address] [place] [address] Care Team Providers Care Breastfeeding Peer Counselor Name Role Phone Bashir Gonzales MD Primary Care Provider Unavailrosetta e Black, Romina Unavailable [phone] Allergies Allergen (clinical drug ingredient) Drug/Non Drug Allergy documented on EMR Reaction Allergy Type Onset Date Status Substance with penicillin structure and antibacterial mechanism of action (substance) Penicillins Unknown Drug Allergy Active REASON FOR VISIT At Risk Footcare, Foot pain Medications Medication SIG (Take, Route, Frequency, Duration) Notes Start Date End Date Status Ammonium Lactate 12 % APPLY TO AFFECTED AREAS ON FEET TWICE A DAY for 30 Active albuterol Not-Taking Atorvastatin Calcium 20 MG Orally Not-Taking hydroCHLOROthiazide Not-Taking Extra Depth Orthopedic Shoes (1 Pair) with Customized Heat Molded Multidensity Innersoles (3 Pair) as directed Dx: NIDDM/Polyneuropathy (E11.42), Hammertoe Foot Deformity (M20.41,M20.42), Preulcerative Skin Lesion(s) (L85.1 04/05/2024 Active Tamsulosin HCl 0.4 MG 1 capsule Orally O nce a day Active Carbidopa-Levodopa 25-100 MG 1 tablet as needed Orally Two times a Week Active Extra Depth Orthopedic Shoes (1 Pair) with Customized Heat Molded Multidensity Innersoles (3 Pair) as directed Dx: NIDDM/Polyneuropathy (E11.42), Hammertoe Foot Deformity (M20.41,M20.42), Preulcerative Skin Lesion(s) (L85.1 09/26/2023 Active Physical Therapy . . . 2-3x/week for 3- 4 weeks 01/12/2024 Active Gabapentin 100 MG 1 capsule Orally Onc e a day Active Valsartan 160 MG 1 tablet Orally Once a day Active Folic Acid Active OneTouch Basic System Not-Taking Aspirin Not-Taking Olopatadine HCl Not- Taking Metformin & Diet Manage Prod 500 MG Orally Not-Taking Fluticasone Furoate Not-Taking Social History Tobacco Use: Social History Observation Description Date Details (start date - stop date) Never Smoker NA - NA Tobacco use other than smoking: Question Answer Notes Are you an other tobacco user? No Tobacco Control (Standard) Question Answer Notes Tobacco use: Nonsmoker Vital Signs Height 5 ft 5 in in 11/01/2024 Weight 158 lbs 11/01/2024 BMI 26.29 kg/m2 11/01/2024 Blood pressure systolic 133 mm Hg 11/01/19 Blood pressure diastolic 90 mm Hg 025 Procedures Procedure Date Ordered Date Performed Result Body Sit e 24455-BURMQOJ NAIL, 6 OR MORE 11/01/2024 N/A 76446-BJTN SKIN LESIONS, 2 TO 4 11/01/2024 N/A Encounters Encounter Location Date Provider Diagnosis [facility] [place] [address] [place] [address] 11/01/2024 Romina Black Pain in right foot M79.671 ; Neuritis of right foot G57.91 ; Tinea unguium B35.1 and Type 2 diabetes mellitus with diabetic polyneuropathy E11.42 Assessments Encounter Date Diagnosis (ICD Code) Assessment Notes Treatment Notes Treatment Clinical Notes Section Notes 11/01/2024 Pain in right foot (ICD-10 - M79.671) 11/01/2024 Neuritis of right foot (ICD-10 - G57.91) 11/01/2024 Tinea unguium (ICD-10 - B35.1) 11/01/2024 Type 2 diabetes mellitus with diabetic polyneuropathy (ICD-10 - E11.42) Plan Of Treatment Pending Test Test Name Order Date 68234-GQOTSGG NAIL, 6 OR MORE 11/01/2024 39854-VUKP SKIN LESIONS, 2 TO 4 11/01/19 25 Next Appt Details Follow Up: 3 Months, Reason: Provider Name:Romina Campbell , 05/13/2025 01:00:00 PM, [address] [place] [address], [phone], Provider Name:Romina Campbell , 08/05/2025 01:00:00 PM, [address] [place] [address], [phone], Procedure Notes * Category Sub-Category Detail Notes Debride Nail 6-10 Nail debridement Due to the cl inical pathology outlined in the exam findings, performance of this nail treatment is medically necessary as its management by an unskilled/untrained nonprofessional would put this patients foot and overall health at risk. Therefore, debridement to affected nail(s), as described in exam ( , TA , T3 , T4 , T5 , T6 , T8_), was performed exclusively by the physician of record to reduce/remove overall nail length, girth, thickness, subungual debris, and necrotic tissue, by manual and/or electrical means through the use of a nail nipper and/or dremel-type lens grinder and polisher, to a more viable healthy nail plate or bed tissue 6-10 nails in total. Silver nitrate was used for any petechial bleeding as necessary. Definitive antifungal treatment options, both pharmaceutical and surgical, have been reviewed and discussed with the patient. The patient solely prefers the use of intermittent/as needed professional debridement services for their nail condition and understands the need for additional periodic treatments to maintain effectiveness in symptomatic relief - 86385 Keratoma Treatment Parring or Cutting o f Benign Hyperkeratotic Lesion(s) (-56) 2-4 Lesions - Due to the at risk nature of the patients medical condition as documented in the exam findings, performance of this keratoderma treatment is medically necessary as its management by an unskilled/untrained nonprofessional would put this patients foot and overall health at risk. Therefore, the benign hyperkeratotic lesions, ( 2_ ) in total, locations as stated and described in the exam ( SUB MTH (s) 1, B/L , ), were pared, and/or cut utilizing a sterile 15 blade, tissue nippers, and/or power dremel instrumentation by the physician of record - 12211 Progress Notes * Lora AGRAWAL:1940 ( 83 yo M)Acc No.[id number]:11/01/2024 Progress Note Patient:?Gertrudis AGRAWAL Provider:?Romina Campbell DPM :1940???Age:83 Y???Sex:Male Drew e:11/01/2024 Address:[address] [place], [place] [id number] Pcp:Bashir Gonzales MD Subjective: * Chief Complaints: * ???At Risk FootcareFoot pain * HPI: ???At Risk footcare:?Pt States Last PCP Visit:?Date?07/03/2024 ???Foot Pain:?Nature:?burning , radiating , shooting , tingling.?Location:?Top ,Bottom, RIGHT.?Duration:?, several months.?Onset:?unknown.?Course:?worse.?Aggravated:?any pressure.?Treatments:?rest/alter normal daily activity.? * ROS:?General/Constitutional:?Nausea?admits.?Vomiting?denies.?Hunger Thirst?denies.?Loss appetite?denies.?Chills?denies.?Fatigue?denies.?Fever?admits.?Night Sweats?denies.?Unexplained weight loss?denies.?Unexplained weight gain?denies.?HEENTM:?Dentures?denies.?Dizziness?admits.?Glasses/contacts?admits.?Retinopathy?de nies.?Blurred/double vision?denies.?TMJ?denies.?Discharge/drainage?denies.?Implants?denies.?Sore throat?denies.?Dental implants?denies.?Hard of hearing ?denies.?Difficulty chewing/swallowing/speaking?denies.?Nose bleeds?admits.?Sore mouth?admits.?Respiratory:?On Oxygen?denies.?Pneumonia/pleurisy?denies.?Bronchitis?denies.?Emphysema?denies.?C oughing?denies.?Cough blood?denies.?Shortness of breath?denies.?Wheezing?denies.?Cardiovascular:?Pacemaker?denies.?MVP?denies.?WPW?denies.?CHF?denies.?Heart attack?denies.?Septal defect?admits.?Rapid beat?denies.?Chest pain ?denies.?Atrial Fib.?denies.?Murmur/Palpitations?denies.?Gastrointestinal:?Hemorrhoids?admits.?Stomach/Abdominal pain?denies.?Dark blood stool?denies.?Irritable bowel ?admits.?Constipation?admits.?Diarrhea?denies.?Hematology:?Swelling?denies.?Clots?denies.?Varicose Veins?admits.?Bruising?denies.?Bleeding problem?denies.?Genitourinary:?Blood urine?denies.?Frequent/Painfu/urination/bladder control?denies.?Kidney stones?denies.?Infection (UTI)?denies.?Nephropathy?denies.?sex trans dis (STD)?denies.?Prostate?denies.?Musculoskeletal:?Hammertoes?denies.?Bunions?denies.?Back Pain?denies.?Muscle Cramps/ Resting?denies.?Muscle cramps / walking?admits.?Generalized aches and pains?admits.?Weakness?admits.?Integ.:?Robins?admits.?Scars?denies.?Corns/calluses?denies.?Ingrown nails?admits.?Painful nails?admits.?Open Sores?denies.?Rashes?denies.?Neurologic:?Difficulty sleeping?admits.?Brain disorder?denies.?Numbness?admits.?Balance trouble?denies.?Confusion?admits.?Fainting/blackouts?denies.?Tingling?admits.?Tr emors?admits.? * Medical History:? * Surgical History:?tonsillect gabino colonoscopy oral surgery * Hospitalization/Major Diagno stic Procedure:?[facility] 01/10/24 * Family History:?Mother: dece ased.?Father: unknown.? Patient states family history is unknown. * Social History:?Tobacco Use:?Tobacco use other than smoking?Are you an other tobacco user??No ?Tobacco Control (Standard)?Tobacco use:?Nonsmoker * Medications:?TakingFolic Aci d Valsartan 160 MG Tablet 1 tablet Orally Once a day Tamsulosin HCl 0.4 MG Capsule 1 capsule Orally Once a day Gabapentin 100 MG Capsule 1 capsule Orally Once a day Carbidopa-Levodopa 25-100 MG Tablet 1 tablet as needed Orally Two times a Week Extra Depth Orthopedic Shoes (1 Pair) with Customized Heat Molded Multidensity Innersoles (3 Pair) as directed Dx: NIDDM/Polyneuropathy (E11.42), Hammertoe Foot Deformity (M20.41,M20.42), Preulcerative Skin Lesion(s) (L85.1 Physical Therapy . . . . 2-3x/week Extra Depth Orthopedic Shoes (1 Pair) with Customized Heat Molded Multidensity Innersoles (3 Pair) as directed Dx: NIDDM/Polyneuropathy (E11.42), Hammertoe Foot Deformity (M20.41,M20.42), Preulcerative Skin Lesion(s) (L85.1 Ammonium Lactate 12 % Cream APPLY TO AFFECTED AREAS ON FEET TWICE A DAY Taking Folic Acid Taking Valsartan 160 MG Tablet 1 tablet Orally Once a day Taking Tamsulosin HCl 0.4 MG Capsule 1 capsule Orally Once a day Taking Gabapentin 100 MG Capsule 1 capsule Orally Once a day Taking Carbidopa-Levodopa 25-100 MG Tablet 1 tablet as needed Orally Two times a Week Taking Extra Depth Orthopedic Shoes (1 Pair) with Customized Heat Molded Multidensity Innersoles (3 Pair) as directed Dx: NIDDM/Polyneuropathy (E11.42), Hammertoe Foot Deformity (M20.41,M20.42), Preulcerative Skin Lesion(s) (L85.1 Taking Physical Therapy . . . . 2-3x/week Taking Extra Depth Orthopedic Shoes (1 Pair) with Customized Heat Molded Multidensity Innersoles (3 Pair) as directed Dx: NIDDM/Polyneuropathy (E11.42), Hammertoe Foot Deformity (M20.41,M20.42), Preulcerative Skin Lesion(s) (L85.1 Taking Ammonium Lactate 12 % Cream APPLY TO AFFECTED AREAS ON FEET TWICE A DAY Not-Taking/PRNalbuterol Atorvastatin Calcium 20 MG Tablet Orally hydroCHLOROthiazide Metformin & Diet Manage Prod 500 MG Miscellaneous Orally Fluticasone Furoate Olopatadine HCl OneTouch Basic System Aspirin Medication List reviewed and reconciled with the patientNot-Taking/PRN albuterol Not- Taking/PRN Atorvastatin Calcium 20 MG Tablet Orally Not-Taking/PRN hydroCHLOROthiazide Not-Taking/PRN Metformin & Diet Manage Prod 500 MG Miscellaneous Orally Not-Taking/PRN Fluticasone Furoate Not-Taking/PRN Olopatadine HCl Not-Taking/PRN OneTouch Basic System Not-Taking/PRN Aspirin Medication List reviewed and reconciled with the patient * Allergies:?Penicillinsyes[Kenny rey Verified] Objective: * Vitals:?Ht: 5 ft 5 in, Wt: 1 58, BMI: 26.29, Shoe size: 8.5W, BP: 133/90 mm Hg, BS: not taken, Ht-cm: 165.1 cm, Wt-k.67 kg. * ???Past Orders: ???Lab:HEMOGLOBIN A1C (GLYCO HEMOGLOBIN) (Order Date - 12/18/2023) (Collection Date & Time - 12/18/2023 01:02 PM) ? Value Reference Range ?TOTAL HEMOGLOBIN (HGBA1C) 5.5 * Examination: ???Ophthalmology Referral: ?DIABETES EYE EXAM?Procedure Performed:?No ?Eye Exam not performed:?No reason specified?General Examination: ?GENERAL APPEARANCE:?Reveals a pleasant, alert, well nourished, well- developed, well hydrated individual, who demonstrates proper attention to hygiene/body habitus, and is in no acute distress, Pt serves as own historian for office visit today, Pt accompanied by, Daughter, who serves as, additional Historian.?FOOT EXAM:?Lower Extremity Neurological Exam performed:?Yes ?Visual exam of foot performed:?Yes ?Date?11/01/2024 ?Sensory testing performed:?sensations diminished ?Sensory and motor testing performed:?sensations and strength diminished ?Pedal pulse taking performed:?2+ ?Footwear Evaluation?Footwear Evaluation performed:?Yes?Neurological: ?SENSORY:?Neurological exam demonstrates , reduced light touch sensation , reduced sharp/dull pin prick discrimination , reduced vibration sensation , 5.07 monofilament test performed at plantar aspects of 5 varied sites per foot shows sensation , reduced , at Forefoot , B/L , Pt relates , anesthesia , burning ,R>L.?TINEL'S COMPRESSION:?Positive , Medial dorsal cutaneous nerve distribution , Intermediate dorsal cutaneous nerve distribution , Right.?Nails: ?NAILS are:?Elongated, overgrown, dystrophic, lytic, greater than 3mm thick, discolored and friable with crumbly malodorous subungual debris , TA , T3 , T4 , T5 , T6 , T8.?Dermatologic: ?SKIN FINDINGS:?Skin exam reveals Keratotic lesion(s) located at , SUB MTH (s)?1, B/L ,.?Vascular: ?DP PULSES (B):?2/4, B/L.?PT PULSES (B):?2/4, B/L.?Neuroma Pain: ?PALPATION:?No interspace pain noted on palpation.? Assessment: * Assessment: 1.?Pain in right foot - M79. 671???2.?Neuritis of right foot - G57.91 (Primary)???Specify :Acute problem, Uncomplicated (3)???3.?Tinea unguium - B35.1???4.?Type 2 diabetes mellitus with diabetic polyneuropathy - E11.42??? Plan: * Treatment: 2.?Type 2 diabetes mellitus with diabetic polyneuropathy?Procedure: 27301-JACP SKIN LESIONS, 2 TO 4 * Procedures:?Debride Nail 6-10:?Nail debridement?Due to the clinical pathology outlined in the exam findings, performance of this nail treatment is medically necessary as its management by an unskilled/untrained nonprofessional would put this patients foot and overall health at risk. Therefore, debridement to affected nail(s), as described in exam ( , TA , T3 , T4 , T5 , T6 , T8_), was performed exclusively by the physician of record to reduce/remove overall nail length, girth, thickness, subungual debris, and necrotic tissue, by manual and/or electrical means through the use of a nail nipper and/or dremel-type lens grinder and polisher, to a more viable healthy nail plate or bed tissue 6-10 nails in total. Silver nitrate was used for any petechial bleeding as necessary. Definitive antifungal treatment options, both pharmaceutical and surgical, have been reviewed and discussed with the patient. The patient solely prefers the use of intermittent/as needed professional debridement services for their nail condition and understands the need for additional periodic treatments to maintain effectiveness in symptomatic relief - 37339.?Keratoma Treatment:?Parring or Cutting of Benign Hyperkeratotic Lesion(s)?(-56) 2-4 Lesions - Due to the at risk nature of the patients medical condition as documented in the exam findings, performance of this keratoderma treatment is medically necessary as its management by an unskilled/untrained nonprofessional would put this patients foot and overall health at risk. Therefore, the benign hyperkeratotic lesions, ( 2_ ) in total, locations as stated and described in the exam ( SUB MTH (s) 1, B/L , ), were pared, and/or cut utilizing a sterile 15 blade, tissue nippers, and/or power dremel instrumentation by the physician of record - 29731.? * Procedure Codes:?13130 DEBRI DE NAIL, 6 OR MORE, Modifiers: XS 06733 TRIM SKIN LESIONS, 2 TO 4, Modifiers: XS * Preventive Medicine:? ??Counseling:?Discussion:?-13: Office or other outpatient visit for the evaluation and management of an established patient, which required a medically appropriate history and/or examination and LOW level of DECISION MAKING for: 1 STABLE ACUTE UNCOMPLICATED PROBLEM, 2 OR MORE MINOR PROBLEMS, OR 1 STABLE CHRONIC PROBLEM, THAT POSE(S) A LOW RISK FOR MORBIDITY/MORTALITY. The visit on the day of the encounter encompassed interpreting the data and educating the patient as to the nature of their condition, treatment options available according to their individual PMH, meds, allergies, and overall health/living conditions, as well as any potential risks or complications that may occur from a failure to adhere to, and participate in, the recommended course of therapy. The discussion included a complete verbal, and/or written explanation of the examination results, any x-rays taken, the proposed diagnosis, and outline of the treatment plan. A schedule for future care needs was also explained. The patient verbalized an understanding of the instructions at this time and agreed to be an active participant in their treatment. If the patient should think of any questions or concerns after the visit, I have encouraged the patient to call the office.?Neuritis/Neuropathy:?The patient was counseled on the diagnosis, possible etiologies (including mechanical stress, injury, entrapment, chemotherapy, diabetes, vertebral disk herniation if hx), treatment options, and importance for adherence to recommendations in order to address the patients Neuritis/Neuropathy. The advantages and disadvantages re: Accomidative mechanical support/offloading, Topical vs PO analgesics including aspercream/Voltaren gel/Lidoderm patches/Neurontin/Lyrica along with their potential side effects were discussed with the patient to their satisfaction. Also discussed the use of therapeutic injectable cortisone if needed. Surgical treatment, if considered an option, was discussed as well. If surgery is warranted, we discussed the potential successful outcomes as well as the possible complications such as failure, painful scar, permanent tingling/numbness/neuralgea/or intractable pain. Patient questions re: medication use, dosage, and possible side effects and drug interactions were reviewed and the answers to each understood. If the condition worsens, the patient was instructed to contact the office for an appointment. The patient verbally confirmed a full understanding of the above, Recommended Biofreeze gel, Discussed that increase in neuropathy on the right could be related to back arthritis/injury,seeing he had a decrease in pain follwing an injection into the lower back.? ??Screening/Special Tests:?Fall Risk?Screening:?No falls in the past year ?FALLS: Screening for Future Fall Risk?Have you had any falls with injury in the past year??No * Follow Up:?3 Months * Images: * Sign off status: Completed true * Provider:?Romina Campbell DPM Date:?2024 Generated for Steve amaro/Addison/Claudette on:?03/13/2025 09:26 PM EDT History and Physical Notes * HPI (History of Present Illness) Category Sub-Category Detail Notes Category Not es At Risk footcare Pt States Last PCP Visit: Date: 4 Foot Pain Nature: burning , radiat ing , shooting , tingling Location: Top ,Bottom, RIGHT Duration: , several months Onset: unknown Course: worse Aggravated: any pressure Treatments: rest/alter normal da marcella activity Examination Category Sub-Category Detail Notes Category Not es Ingrown Nail INSPECTION: Neuroma Pain PALPATION: No interspace pain noted on palpation Neurological SENSORY: Neurological exa m demonstrates , reduced light touch sensation , reduced sharp/dull pin prick discrimination , reduced vibration sensation , 5.07 monofilament test performed at plantar aspects of 5 varied sites per foot shows sensation , reduced , at Forefoot , B/L , Pt relates , anesthesia , burning ,R>L TINEL'S COMPRESSION: Positive , Medial d orsal cutaneous nerve distribution , Intermediate dorsal cutaneous nerve distribution , Right Dermatologic SKIN FINDINGS: Skin exam reveal s Keratotic lesion(s) located at , SUB MTH (s) 1, B/L , General Examination GENERAL APPEARANCE: Reveals a pleasant, alert, well nourished, well-developed, well hydrated individual, who demonstrates proper attention to hygiene/body habitus, and is in no acute distress, Pt serves as own historian for office visit today, Pt accompanied by, Daughter, who serves as, additional Historian FOOT EXAM: Lower Extremity Neurological Exa m performed:: Yes Visual exam of foot performed:: Yes Date: 11/01/2024 Sensory testing performed:: sensations d iminished Sensory and motor testing performed:: se nsations and strength diminished Pedal pulse taking performed:: 2+ Footwear Evaluation Footwear Evaluation performe d:: Yes Ophthalmology Referral DIABETES EYE EXAM Procedure Perform ed:: No Eye Exam not performed:: No reason speci fied Vascular DP PULSES (B): 2/4, B/L PT PULSES (B): 2/4, B/L Nails NAILS are: Elongated, overg rown, dystrophic, lytic, greater than 3mm thick, discolored and friable with crumbly malodorous subungual debris , TA , T3 , T4 , T5 , T6 , T8
[2025-03-13 22:00] VITALS: BP 140/70; PULSE 55; RESP 16; TEMP 36.3; O2SAT 94
[2025-03-13 22:39] LABS: Appearance Urine Clear; Color Urine Yellow; Glucose Urine UA Negative (Negative); Leukocyte Esterase Urine Negative (Negative); Nitrite Urine Negative (Negative); PH 5.5 (5.0-9.0); Urine Blood Negative (Negative); Urine Ketones Trace mg/dL (Negative); Urine Protein Trace mg/dL (Neg-Trace)
[2025-03-13 23:09] LABS: Influenza A PCR NEGATIVE (Negative); Influenza B PCR NEGATIVE (Negative); Resp Syncy Virus RNA Qual PCR NEGATIVE (Negative); SARS COV2 PCR INHOUSE NEGATIVE (Negative)
--- NOTE | 2025-03-13 23:59 | MHC.EDTECH ---
pt daughter approched this tech statinf she needs hospital bed for her dad and camera to watch him, I explained to the pt that I will notify nurse. Nurse is busy administering blood products in another room so I informed pt that I will talk to her as soon as she is done. 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 She stated that her father was overdosed at [facility] (not sure whit what med) and she has the list of meds and this is the correct way of doing it . She also stated she feels unsafe with me and I do not know procedures and she does because she works for [employer] (unknown position. Charge nurse notified.
--- NOTE | 2025-03-14 04:07 | PC.NURSE ---
pt incont of urine, assist with washing, male purewick in place
[2025-03-14 05:36] VITALS: BP 171/81; PULSE 57; RESP 16; TEMP 36.6; O2SAT 96
--- NOTE | 2025-03-14 06:39 | PC.NURSE ---
daughter left detailed note with exact times that patient takes his medications: carbidopa/levodopa 3x/day (8:00, 13:00, 17:30) gabapentin 4x/day (8:00, 13:00, 17:30, 19:30) tamsulosin x2 @ 19:30 valsartan 160mg @ 08:00 macrobid 50mg @ 08:00
[2025-03-14] MEDS: nitrofurantoin macrocrystaL 50 MG CAPSULE PO (07:41)
[2025-03-14] MEDS: Gabapentin 100 MG CAPSULE PO (07:41)
[2025-03-14] MEDS: Carbidopa/Levodopa 25/100 TABLET 1 TAB PO (07:42)
--- NOTE | 2025-03-14 09:13 | PC.NURSE ---
Pt A&O X4, ambulated earlier with PT- Pt ate some of bkfst and drank- Pt in NAD, resting comfortably at this time. Daughter spoke with pt. ALANS
--- NOTE | 2025-03-14 09:31 | PC.NURSE ---
Pt moved bowels in BR when with PT
[2025-03-14 09:32] VITALS: BP 122/64
[2025-03-14] MEDS: Valsartan 160 MG TABLET PO (09:32)
--- NOTE | 2025-03-14 10:34 | MHC.CM.ED ---
Received case management consult from Dr Bowie overnight. Patient came to the ER due to weakness. Work up essentially negative. Physical therapy eval completed. Short term rehab is recommended. Received notification from Dr Slater'bulmaro that patient's daughter/HCP, can be a little particular patient's care and only wants patient to go to [facility] for rehab or home with [facility]. Referral made to [facility]. [facility] is not able to offer a bed because patient does not meet acute rehab level of care. Referral made to [facility]. Physical therapy is not available until next week. Attempted to meet with patient. Patient currently sleeping. Spoke with patient's daughter/HCP, Munira, via telephone at [phone]. Above information relayed to Munira. Munira questioned if patient was able to ambulate with physical therapy. T/W explained patient ambulated about 60 feet with physical therapy. Munira questioning rehab at [facility]. T/W explained with [facility] level of care, physical therapy is only about a hour a day 5 days a week. Munira does not feel this is enough and is agreeable to taking patient home with [facility]. Munira aware PT will not be available for a week. Munira requesting home health aide. T/W explained it would be up to [facility] to assess for that need. Munira verbalize understanding and will be on-site at 11am to transport patient home. Patient, Elenita DENNIS and Linnea VELEZ aware. Continue to monitor for d/c needs.
[2025-03-14 10:50] VITALS: BP 133/63; PULSE 60; RESP 16; TEMP 36.4; O2SAT 97
[2025-03-14 11:31] VITALS: BP 133/63; PULSE 60; RESP 16; TEMP 36.4; O2SAT 97
--- NOTE | 2025-03-14 11:31 | PC.NURSE ---
DC instructions reviewed with pt Daughter Munira- Pt DC via W/C to her care. She verbalizes understanding of Dc instructions and has no questions. Pt A&O X4 VSS NAD No complaints.
== END 2025-03-14 11:32 | disposition home or self-care (01) ==
PROVIDERS: Emergency Provider Emergency Medicine; PCP Internal Medicine
DX: R53.1 Weakness (principal); R29.6 Repeated falls; Z91.81 History of falling; G20.A1 Parkinson's 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, without mention of fluctuations; Z03.818 Encounter for observation for suspected exposure to other biological agents ruled out; E11.9 Type 2 diabetes mellitus without complications; I10 Essential (primary) hypertension; E78.00 Pure hypercholesterolemia, unspecified; Z79.899 Other long term (current) drug therapy
CPT/HCPCS: 0241U; 36415; 70450; 72125; 72131; 80053; 81003; 83690; 84484; 85025; 93005; 97162; 99285

== ENCOUNTER → 2025-03-13 20:57 | Outpatient (BNV) | payer MEDICARE, SELFPAY | PROVIDERS: Emergency Provider Emergency Medicine; PCP Internal Medicine; Visit Provider Internal Medicine Cardiovascular Disease | DX: I45.10 Unspecified right bundle-branch block (principal) | CPT/HCPCS: 93010 ==

== ENCOUNTER → 2025-03-13 21:18 | Outpatient (BNV) | payer MEDICARE, SELFPAY | PROVIDERS: Emergency Provider Emergency Medicine; PCP Internal Medicine; Visit Provider Radiology Neuroradiology | DX: M54.2 Cervicalgia (principal); R41.82 Altered mental status, unspecified | CPT/HCPCS: 70450; 72125 ==

== ENCOUNTER 2025-05-01 11:02 | Outpatient (AMB) | payer MEDICARE, SELFPAY ==
--- NOTE | 2025-05-01 11:04 | MHC.OFFVIS ---
Vital Signs 05/01/25 11:17 BP 100/60 Blood Pressure Location Rt brachial Pulse 65 Pulse Source Pulse Oximeter Pulse Oximetry (%) 93 Oxygen Delivery Method Room Air Intake Visit Reasons: 6 Month F/U Intake Note: Patient presents for follow up med adjustment. Currently on an antibiotic for UTI. Clinical Documentation Specialist Required: No Accompanied by: Spouse Allergies No Known Allergies (No Known Allergies*) Allergy (Verified 05/01/25 11:05) HPI Comments Details: 84y/o Right handed male comes for further follow up of parkinsonism. He has had multiple falls. Their daughter lives with them He is going to PT.He uses a walker. His cognition is worse. He has trouble dressing using his cell phone etc. History from last visit-He is drinking about 6 glasses He was diagnosed 3 years ago when her presented with tremors by Dr. Ray. The tremors are mostly in his left .He has excessive daytime sleepiness. He also has vivid dreams and some acting out.He has hypophonia, drooling. He is worried but not depressed. He has anxiety.He feels his handwriting is sloppier.He is slower in his activities. He denies hallucinations. No dizziness. He has constipation- uses OTC stool softener.He has urinary frequency and has accidents. He had a mild head injury 3 years ago.No exposure to neuroleptics. [facility] Medical History Confusion Parkinson's 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 Parkinsonism Parkinson's disease Aortic stenosis Lumbar spine pain Hypothyroidism COPD (chronic obstructive pulmonary disease) Peptic ulcer Renal calculi HTN (hypertension) Diabetes Prostate CA Parkinsons disease Hypercholesterolemia Family History Mother PCOS (polycystic ovarian syndrome) Social History Alcohol intake: never Patient Tobacco Use Status: Never used Tobacco Advance Directives Date on File: 12/24/21 Physical Exam Vital Signs: Last Vital Signs Pulse 65 05/01/25 11:17 BP 100/60 05/01/25 11:17 Pulse Ox 93 05/01/25 11:17 Oxygen Delivery Method Room Air 05/01/25 11:17 Const General: cooperative and comfortable Nutritional Appearance: average body habitus Orientation/consciousness: patient oriented x3 Limitations: physical limitations HEENT Head: Yes normal to inspection Neuro Other: Moderately decreased facial expression and blink No tremors Chava cogwheel rigidity L>R Fine finger movements- severely decreased L>R Foot taps- severely decreased L>R Moderate hypophonia Gait- stooped, difficulty getting up from chair , small steps with walker , difficulty turning General: patient oriented x3 and moves all extremities Cranial nerves: Yes Facial sensation intact/muscles of mastication intact, Yes Bilaterally intact EOM present, Yes Nystagmus not present, Yes Normal facial strength present, Yes Midline tongue present, Yes Symmetric palate elevation present and Yes Ability to bilaterally elevate shoulders present Cognition (Neuro): normal cognition Coordination: odeppp-si-fdug test normal Psych Appearance: grossly normal Assessment & Plan Assessment & Plan (1) Parkinson's 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: Code(s): G20.A1 - Parkinson's 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, without mention of fluctuations Category: Medical Qualifiers: Fluctuating manifestations: without fluctuating manifestations Qualified Code(s): G20.A1 - Parkinson's 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, without mention of fluctuations Plan sinemet 25/100 tid- increase in dose did not help and caused dizziness. Increase fluids Increase physical activity . decrease gabapentin 100mg tid PT Coding Level of Care Code Est Pt Level 4 (70078) Diagnoses Parkinson's 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 or fluctuating manifestations G20.A1 Fluctuating manifestations: without fluctuating manifestations
[2025-05-01 11:17] VITALS: BP 100/60; PULSE 65; O2SAT 93
--- OUTSIDE RECORDS SUMMARY | 2025-05-01 11:58 | XMS_ITS | Patient Health Record ---
[facility] Address [address] [place] [address] Care Team Providers Care Hosiery Bagger Name Role Phone Bashir Gonzales MD Primary Care Provider Unavailrosetta lackey Adrian, Romina Unavailable [phone] Allergies Allergen (clinical drug ingredient) Drug/Non Drug Allergy documented on EMR Reaction Allergy Type Onset Date Status Substance with penicillin structure and antibacterial mechanism of action (substance) Penicillins Unknown Drug Allergy Active Reason For Referral No Information Medications Medication SIG (Take, Route, Frequency, Duration) Notes Start Date End Date Status Atorvastatin Calcium 20 MG Orally Not-Taking Valsartan 160 MG 1 tablet Orally Once a day Active hydroCHLOROthiazide Not-Taking Folic Acid Not-Takin g albuterol Not-Taking Ammonium Lactate 12 % APPLY TO AFFECTED AREAS ON FEET TWICE A DAY; Duration: 90 Active Extra Depth Orthopedic Shoes (1 Pair) with Customized Heat Molded Multidensity Innersoles (3 Pair) as directed Dx: NIDDM/Polyneuropathy (E11.42), Hammertoe Foot Deformity (M20.41,M20.42), Preulcerative Skin Lesion(s) (L85.1 02/11/2025 Active Physical Therapy . . . 2-3x/week; Duration: 3-4 weeks 01/12/2024 Active Aspirin Not-Taking Extra Depth Orthopedic Shoes (1 Pair) with Customized Heat Molded Multidensity Innersoles (3 Pair) as directed Dx: NIDDM/Polyneuropathy (E11.42), Hammertoe Foot Deformity (M20.41,M20.42), Preulcerative Skin Lesion(s) (L85.1 04/05/2024 Not-Taking Carbidopa-Levodopa 25-100 MG 1 tablet as needed Orally Two times a Week Active Olopatadine HCl Not- Taking Extra Depth Orthopedic Shoes (1 Pair) with Customized Heat Molded Multidensity Innersoles (3 Pair) as directed Dx: NIDDM/Polyneuropathy (E11.42), Hammertoe Foot Deformity (M20.41,M20.42), Preulcerative Skin Lesion(s) (L85.1 09/26/2023 Active OneTouch Basic System Not-Taking Tamsulosin HCl 0.4 MG 1 capsule Orally O nce a day Active Metformin & Diet Manage Prod 500 MG Orally Not-Taking Gabapentin 100 MG 1 capsule Orally Onc e a day Active Fluticasone Furoate Not-Taking Immunizations Vaccine Route Administration Date Status Comme nts Influenza Unknown 08/02/2022 Administered Influenza Unknown 07/18/2023 Administered Social History Tobacco Use: Social History Observation Description Date Details (start date - stop date) Never Smoker NA - NA Alcohol Screen Question Answer Notes Did you have a drink containing alcohol in the p ast year? No Points 0 Interpretation Negative Tobacco use other than smoking: Question Answer Notes Are you an other tobacco user? No Tobacco Control (Standard) Question Answer Notes Tobacco use: Nonsmoker Problems Problem Type SNOMED Code ICD Code Onset Dates Problem Status W/U Status Risk Notes Problem Acquired hammer toe of right foot (3387877860446740 ) Other hammer toe(s) (acquired), right foot (M20.41) Active confirmed Problem Acquired hammer toe of left foot (9486892442775174 ) Other hammer toe(s) (acquired), left foot (M20.42) Active confirmed Problem Polyneuropathy due to type 2 diabetes mellitus (282711054) Type 2 diabetes mellitus with diabetic polyneuropathy (E11.42) Active confirmed Vital Signs Blood pressure diastolic 90 mm Hg 02/11/2025 Height 5 ft 5 in in 02/11/2025 Blood pressure systolic 131 mm Hg 02/11/2025 Weight 150 lbs 02/11/2025 BMI 24.96 kg/m2 02/11/2025 Procedures Procedure Date Ordered Date Performed Result Body Sit e 08858-OOJCIBK NAIL, 6 OR MORE 07/19/2024 N/A 28927-GQNU SKIN LESIONS, 2 TO 4 07/19/2024 N/A 10256-UOPMBCJ NAIL, 6 OR MORE 11/01/2024 N/A 74953-TGIU SKIN LESIONS, 2 TO 4 11/01/2024 N/A 69864-EHNNZZO NAIL, 6 OR MORE 02/11/2025 N/A 12332-TCLL SKIN LESIONS, 2 TO 4 02/11/2025 N/A Encounters Encounter Location Date Provider Diagnosis [address] [address] 07/19/2024 Romina Black Tinea unguium B35.1 and Type 2 diabetes mellitus with diabetic polyneuropathy E11.[address] [address] 11/01/2024 Romina Black Pain in right foot M79.671 ; Neuritis of right foot G57.91 ; Tinea unguium B35.1 and Type 2 diabetes mellitus with diabetic polyneuropathy E11.[address] [address] 02/11/2025 Romina Black Tinea unguium B35.1 ; Other hammer toe(s) (acquired), right foot M20.41 ; Type 2 diabetes mellitus with diabetic polyneuropathy E11.42 and Other hammer toe(s) (acquired), left foot M20.[address] [address] 06/02/2024 Romina Black Assessments Encounter Date Diagnosis (ICD Code) Assessment Notes Treatment Notes Treatment Clinical Notes Section Notes 07/19/2024 Tinea unguium (ICD-10 - B35.1) 07/19/2024 Type 2 diabetes mellitus with diabetic polyneuropathy (ICD-10 - E11.42) 11/01/2024 Pain in right foot (ICD-10 - M79.671) 11/01/2024 Neuritis of right foot (ICD-10 - G57.91) 02/11/2025 Other hammer toe(s) (acquired), right foot (ICD-10 - M20.41) Patient Educated with: DIABETIC FOOT CARE INSTRUCTIONS. pdf (DIABETIC FOOT CARE INSTRUCTIONS. pdf) 02/11/2025 Tinea unguium (ICD-10 - B35.1) 02/11/2025 Type 2 diabetes mellitus with diabetic polyneuropathy (ICD-10 - E11.42) 11/01/2024 Tinea unguium (ICD-10 - B35.1) 11/01/2024 Type 2 diabetes mellitus with diabetic polyneuropathy (ICD-10 - E11.42) 02/11/2025 Other hammer toe(s) (acquired), left foot (ICD-10 - M20.42) Plan Of Treatment Pending Test Test Name Order Date 83191-ZAKPVYO NAIL, 6 OR MORE 03/17/2023 91010-GJVMIEU NAIL, 6 OR MORE 06/27/2023 14657-YABDSTF NAIL, 6 OR MORE 09/26/2023 36047-RQKAOXM NAIL, 6 OR MORE 01/12/2024 74314-JRETKNT NAIL, 6 OR MORE 04/05/2024 43376-KKTFLJK NAIL, 6 OR MORE 07/19/2024 14559-PICTJTD NAIL, 6 OR MORE 11/01/2024 02269-JBFVCYX NAIL, 6 OR MORE 02/11/2025 43862-Mowlktcz Plate 03/17/2023 53622-XIPL SKIN LESIONS, 2 TO 4 03/17/20 23 53929-AAFI SKIN LESIONS, 2 TO 4 06/27/20 23 83074-HIGJ SKIN LESIONS, 2 TO 4 01/12/20 24 19839-APUW SKIN LESIONS, 2 TO 4 09/26/20 23 75531-GIPO SKIN LESIONS, 2 TO 4 02/12/20 25 64116-WKEF SKIN LESIONS, 2 TO 4 11/01/19 25 09979-TUMM SKIN LESIONS, 2 TO 4 07/19/20 24 58485-OKID SKIN LESIONS, 2 TO 4 04/05/20 24 Next Appt Details Provider Name:Romina Campbell , 05/13/2025 01:00:00 PM, [address] [place] [address], [phone], Provider Name:Romina Campbell , 08/05/2025 01:00:00 PM, [address] [place] [address], [phone], Insurance Providers Payer Name Payer Address Payer Phone Subscriber Number Group Number Insured Name Patient Relationship to Insured Coverage Start Date Coverage End Date [facility] 65 Medicare Preferred [address] [place] [address] [id number] Gertrudis Lynch Self - patient is the insured Medical (General) History Medical History History ICD Code Chronic obstructive pulmonary disease (C OPD) Hypertension, benign type II diabetes Hyperlipidemia Nephrolithiasis Prostate Cancer Parkinsons disease Psoriasis/eczema Unsteady gait R26.81 Arthritis of joint of lesser toe, right M19.071 Neuritis of right foot G57.91 Arthritis of joint of lesser toe, left M 19.072 Surgical History Surgery Date(Month/Year) tonsillectomy colonoscopy oral surgery Hospitalization History Reason Date(Month/Year) UTI 12/13/24 [facility] 01/10/24
--- OUTSIDE RECORDS SUMMARY | 2025-05-01 11:58 | XMS_ITS | Clinical Summary ---
Author Organization [address] Address [address] [place] [phone] Phone Care Team Providers Care Wrecker Operator Name Role Phone Tyler Gonzales MD Primary Care Provider [phone] Allergies Active Allergy Reactions Criticality Noted Date Comments Penicillin G Potassium 12/24/2005 Medications carbidopa-levo dopa (SINEMET) 25-100 mg per tablet Take 1 tablet by mouth 4 (four) times a day. Active folic acid (FOLVITE) 1 mg tablet Take 1 tablet (1,000 mcg total) by mouth 1 (one) time each day. 11/03/19 24 Active ketoconazole (NIZORAL) 2 % cream Apply topically. APPLY TWICE A DAY AFFECTED AREA. Active albuterol HFA (PROAIR HFA ; PROVENTIL HFA ; VENTOLIN HFA) 90 mcg/actuation inhaler Inhale by mouth. Inhale 2 Puffs into the lungs every 4 hours as needed for Cough or Wheezing. - Inhalation Active glucose blood test strip by Other route. Use to test blood sugar once daily Active lancets lancets by Other route. Use to test blood sugar once daily Active blood-glucose meter kit Active tamsulosin (FLOMAX) 0.4 mg 24 hr capsule TAKE 2 CAPSULES BY MOUTH ONCE DAILY, 30 MINUTES AFTER SAME MEAL EVERY DAY. 180 capsule 1 01/12/20 25 Active acetaminophen (TYLENOL 8 HOUR) 650 mg 8 hr tablet TAKE 1 TABLET BY MOUTH TWICE A DAY 60 tablet 01/17/20 25 Active valsartan (DIOVAN) 160 mg tablet TAKE 1 TABLET BY MOUTH EVERY DAY 90 tablet 1 02/05/20 25 Active atorvastatin (LIPITOR) 10 mg tablet TAKE 1 TABLET BY MOUTH EVERYDAY AT BEDTIME 90 tablet 1 04/01/20 25 Active gabapentin (NEURONTIN) 100 mg capsule Take 1 capsule (100 mg total) by mouth 4 (four) times a day. 360 capsule 1 04/11/20 25 Active nitrofurantoin (MACRODANTIN) 50 mg capsule Take 1 capsule (50 mg total) by mouth 1 (one) time each day in the morning. 02/18/20 25 Active budesonide-for moteroL (Symbicort) 80-4.5 mcg/actuation inhalerIndicat ions:Chronic obstructive pulmonary disease, unspecified COPD type (CMS/HCC V24, CMS/HCC V28) Inhale 2 puffs by mouth 2 (two) times a day. Rinse mouth with water after use to reduce aftertaste and incidence of candidiasis. Do not swallow. 1 each 04/26/20 25 026 Active gabapentin (NEURONTIN) 100 mg capsule TAKE 1 CAPSULE BY MOUTH THREE TIMES A DAY 270 capsule 1 09/11/20 24 025 Discontinued(Re order) fluticasone furoate (Arnuity Ellipta) 200 mcg/actuation blister with device inhaler Inhale 1 puff by mouth 1 (one) time each day. 1 each 5 10/05/20 24 025 Discontinued fluticasone HFA (FLOVENT HFA) 110 mcg/actuation inhaler Inhale 2 puffs by mouth 2 (two) times a day. Rinse mouth with water after use to reduce aftertaste and incidence of candidiasis. Do not swallow. 12 g 5 04/18/20 25 025 Discontinued fluticasone HFA (FLOVENT HFA) 110 mcg/actuation inhaler Inhale 1 puff by mouth 2 (two) times a day. Rinse mouth with water after use to reduce aftertaste and incidence of candidiasis. Do not swallow. 12 g 5 04/26/20 25 025 Discontinued fluticasone furoate-vilant Kellie (BREO ELLIPTA) 100-25 mcg/dose inhaler Inhale 1 puff by mouth 1 (one) time each day. 1 each 2 04/26/20 025 Discontinued Active Problems Problem Noted Date Diagnosed Date Benign prostatic hyperplasia 01/21/2025 Parkinsonism ([facility] V24, [facility] V28) 10/26/19 Overview (09/10/2024): Diagnosed by Dr. Ray Subclinical hypothyroidism 02/16/2019 Overview (09/10/2024): TSH 4.02, 02/15/2019 Nonrheumatic aortic valve stenosis 05/09/2017 Overview (09/10/2024): 01/03 moderate COPD (chronic obstructive pu lmonary disease) ([facility] V24, [facility] V28) 01/18/2012 Microalbuminuria 01/18/2012 Type 2 diabetes mellitus wit h cataract ([facility] V24, 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 V24, [facility] V28) 08/06/2008 Actinic keratosis 10/03/2006 Essential hypertension, benign 12/24/2005 Mixed hyperlipidemia 12/24/2005 Nephrolithiasis 12/24/2005 Encounters Date Type Department Care Team Description 04/18/2025 4:36 PM EDT - 04/18/2025 11:59 PM EDT Hospital Encounter [address] [phone] Low back pain, unspecified back pain laterality, unspecified chronicity, unspecified whether sciatica present Discharge Disposition: Home or Self Care 04/18/2025 4:00 PM EDT Office Visit Adult Medicine [facility] [address] [place] [address] Tyler Gonzales MD Routine physical examination (Primary Dx); Other specified counseling; Low back pain, unspecified back pain laterality, unspecified chronicity, unspecified whether sciatica present; Chronic obstructive pulmonary disease, unspecified COPD type ([facility] V24, 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 V24, [facility] V28); Essential hypertension, benign; Parkinson's disease with dyskinesia, unspecified whether manifestations fluctuate ([facility] V24, [facility] V28); Elevated PSA 03/29/2025 Telephone Adult Medicine [address] [phone] Tyler Gonzales MD faxed order ([place] [facility] order [id number]) 03/18/2025 Telephone Adult Medicine [address] [phone] Tyler Gonzales MD faxed order ([place] [facility] order #[id number]) 03/18/2025 Telephone Adult Medicine [address] [phone] Annetta Kilgore MA [facility] 03/15/2025 Telephone Adult Medicine [address] [phone] Tyler Gonzales MD [facility] 02/21/2025 Nurse Triage Adult [address] [phone] Tyler Gonzales MD 01/31/2025 Telephone Adult Medicine [address] [phone] Tyler Gonzales MD Faxed Order (Camilla Yip ) from Last 3 Months Immunizations Name Administration Dates Next Due Tdap Tetanus diptheria acell ular pertussis (Boostrix; Adacel) 7yo and older 04/18/2025 Surgical History Surgery Date Site/Laterality Comments TONSILLECTOMY PROCEDURE: HISTORICAL TONSILLECTOMY COLONOSCOPY 03/02/2004 PROCEDURE: HISTORICAL COLONOSCOPY; COMMENT: Diverticulosis COLONOSCOPY 06/26/2014 PROCEDURE: UT COLONOSCOPY FLX DX W/COLLJ SPEC WHEN PFRMD; COMMENT: Diverticulosis MULTIPLE TOOTH EXTRACTIONS PROCEDURE: HISTORICAL DENTAL EXTRACTION CATARACT EXTRACTION PROCEDURE: HISTORICAL CATARACT REMOVAL Medical History Medical History Date Comments Mixed hyperlipidemia 12/24/2005 DX:Mixed hy perlipidemia Personal history of peptic u lcer disease 12/24/2005 DX:Personal history of pepti c ulcer disease Calculus of kidney 12/24/2005 DX:Calculus o f kidney Type II or unspecified type diabetes mellitus with unspecified complication, not stated as uncontrolled DX:Type II or unspecified ty pe diabetes mellitus with unspecified complication, not stated as uncontrolled Esophageal reflux DX:Esophageal reflux Essential hypertension, benign 12/24/2005 D X:Essential hypertension, benign COPD (chronic obstructive pu lmonary disease) ([facility] V24, [facility] V28) 01/18/2012 DX:COPD (chronic o bstructive pulmonary disease) ([facility]) Actinic keratosis, hx of DX:Acti aman keratosis, hx of Type 2 diabetes mellitus wit h cataract ([facility] V24, [facility] V28) 01/18/2012 DX:Type 2 diabetes mellitus with cataract ([facility]) Family History Medical History Relation Name Comments Cataracts Father Other: unknown Father Blindness Neg Hx Glaucoma Neg Hx Macular degeneration Neg Hx Strabismus Neg Hx Relation Name Status Comments Father Mother (Age 72) Social History Tobacco Use Types Packs/Day Years Used Date Smoking Tobacco: Former Cigarettes 0.3 45 0 10/17/1958 - 10/17/2003 Smokeless Tobacco: Never Alcohol Use Standard Drinks/Week Comments Yes 0 (1 standard drink = 0.6 oz pur e alcohol) Sex and Gender Information Value Date Recorded Sex Assigned at Not on file Legal Sex Male 2:41 PM EST Gender Identity Not on file Sexual Orientation Not on file Obstetrics History Last Filed Vital Signs Vital Sign Reading Time Taken Comments Blood Pressure 146/62 04/18/2025 3:03 PM EDT Pulse 60 04/18/2025 3:03 PM EDT Temperature 36.4 C (97.5 F) 04/18/2025 3:03 PM EDT Respiratory Rate 16 04/18/2025 3:03 PM EDT Oxygen Saturation 93% 04/18/2025 3:03 PM EDT Inhaled Oxygen Concentration - - Weight 68 kg (150 lb) 04/18/2025 3:03 PM EDT Height 166.4 cm (5' 5.5 ) 04/18/2025 3:03 PM EDT Body Mass Index 24.58 04/18/2025 3:03 PM EDT Plan of Treatment Upcoming Encounters Date Type Department Care Team (Late st Contact Info) Description 11/15/2025 1:00 PM EST Office Visit Adult Medicine [address] [phone] Tyler Gonzales MD [address] [place] [phone] 04/21/2026 2:00 PM EDT Office Visit Adult [address] [phone] Tyler Gonzales MD [address] [place] [address] [phone] Health Maintenance Due Date Last Done Comments Diabetes: Annual Retina Eye Exam 1950 Falls Risk Assessment 09/25/2022 Social Influencers of Health Screening 09/25/2022 COVID-19 Vaccine ( season) 2024 10/07/2022, 07/12/2021, 12/15/2020, Additional history exists Medicare Annual Wellness Visit 01/08/2025 01/09/2024 Diabetes: Annual Foot Exam 01/11/2025 01/12/2024 Influenza Vaccine (#1) 2025 , 07/18/2023, 07/02/2023, Additional history exists Diabetes: Blood Sugar Control Test (HGBA1C) 10/15/2025 04/15/2025, 01/04/2025, 08/06/2024, Additional history exists Hypertension/CHF/CAD Annual BMP Blood Test 04/15/2026 04/15/2025, 12/17/2024, 08/06/2024, Additional history exists Cholesterol Screening (Lipid Panel) 04/15/2030 04/15/2025, 08/06/2024, 08/06/2024 DTaP,Tdap,and Td Vaccines (4 - Td or Tdap) 04/18/2035 04/18/2025, 11/30/2012, 09/13/2006 Pneumococcal Vaccine: 50+ Years Completed 06/13/2018, 03/26/2016, 01/30/2014, Additional history exists Zoster Vaccines Completed 08/16/2020, 04/2020, 11/24/2009 RSV Immunization Adult Patients Completed 10/15/2023 Depression Screening Completed 04/18/2025 HIB Vaccines Aged Out No longer eligi ble based on patient's age to complete this topic HPV Vaccines Aged Out No longer eligi ble based on patient's age to complete this topic Hepatitis A Vaccines Aged Out No long er eligible based on patient's age to complete this topic Hepatitis B Vaccines Aged Out No long er eligible based on patient's age to complete this topic IPV Vaccines Aged Out No longer eligi ble based on patient's age to complete this topic MMR Vaccines Aged Out No longer eligi ble based on patient's age to complete this topic Meningococcal ACWY Vaccine Aged Out N o longer eligible based on patient's age to complete this topic Meningococcal B Vaccine Aged Out No l onger eligible based on patient's age to complete this topic RSV Immunization Patients Under 20 months Aged Out No longer eligible based on patient's age to complete this topic Varicella Vaccines Aged Out No longer eligible based on patient's age to complete this topic Procedures Procedure Name Priority Date/Time Associated Diagnosis Comments XR LUMBAR SPINE 4+ VIEWS Routine 04/18/2025 4:51 PM EDT Low back pain, unspecified back pain laterality, unspecified chronicity, unspecified whether sciatica present CBC WITH AUTO DIFFERENTIAL Routine 04/15/2025 10:49 AM EDT Screening for deficiency anemia HEMOGLOBIN A1C Routine 04/15/2025 10:49 AM EDT 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, without long-term current use of insulin ([facility] V24, [facility] V28) CBC AND DIFFERENTIAL Routine 04/15/2025 10:49 AM EDT Screening for deficiency anemia COMPREHENSIVE METABOLIC PANEL Routine 04/15/2025 10:49 AM EDT Type 2 diabetes mellitus with cataract ([facility] V24, [facility] V28) 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, without long-term current use of insulin ([facility] V24, [facility] V28) LIPID PANEL WITH REFLEX TO DIRECT LDL Routine 04/15/2025 10:49 AM EDT Mixed hyperlipidemia PROSTATE SPECIFIC ANTIGEN SCREEN Routine 04/15/2025 10:49 AM EDT Screening for malignant neoplasm of prostate URINALYSIS WITH REFLEX MICROSCOPIC Routine 02/22/2025 1:19 PM EDT Recurrent UTI URINALYSIS WITH REFLEX MICROSCOPIC Routine 02/22/2025 1:19 PM EDT Recurrent UTI CULTURE URINE Routine 02/22/2025 1:19 PM EDT Recurrent UTI DIABETES FOOT EXAM Routine 01/12/2024 from Last 3 Months or Most Recently Relevant to Health Maintenance Results * XR Lumbar Spine 4+ Views (04/18/2025 4:51 PM EDT) Anatomical Region Laterality Modality Spine, L-spine Radiographic Steph ging 04/20/2025 2:55 PM EDT Narrative 04/20/2025 2:58 PM EDT Lumbosacral spine, 4 views. History known buckle. There is mild thoracolumbar levoscoliosis. There is moderate compression deformity of the T12 unchanged since prior studies, latest MRI from 04/09. There is moderate anterior displacement of L5 over S1. There are hypertrophic degenerative changes in the facet joints from L3-4 to L5-S1. There is possible L5 spondylolysis. Incidental findings of constipation. CONCLUSIONS: Mild dextroscoliosis. Stable chronic compression deformity of the T12. Multilevel bony and discs degenerative changes as detailed. -------- FINAL REPORT -------- Dictated By: Lawanda Hoyt Dictated Date: 04/20/2025 14:55 ET Assigned Physician: Lawanda Hoyt Reviewed and Electronically Signed By: Lawanda Hoyt Signed Date: 04/20/2025 14:58 ET Workstation ID: [id number] Transcribed By: Self Edit Transcribed Date: 04/20/2025 14:55 ET Procedure Note Lawanda Hoyt MD - 04/20/2025 Lumbosacral spine, 4 views. History known buckle. There is mild thoracolumbar levoscoliosis. There is moderate compressiondeformity of the T12 unchanged since prior studies, latest MRI from 04/09.There is moderate anterior displacement of L5 over S1. There arehypertrophic degenerative changes in the facet joints from L3-4 to L5-S1.There is possible L5 spondylolysis. Incidental findings of constipation. CONCLUSIONS: Mild dextroscoliosis. Stable chronic compression deformity ofthe T12. Multilevel bony and discs degenerative changes as detailed. -------- FINAL REPORT -------- Dictated By: Lawanda Hoyt Dictated Date: 04/20/2025 14:55 ET Assigned Physician: Lawanda Hoyt Reviewed and Electronically Signed By: Lawanda Hoyt Signed Date: 04/20/2025 14:58 ET Workstation ID: [id number] Transcribed By: Self Edit Transcribed Date: 04/20/2025 14:55 ET us Tyler Gonzales MD IMG XR PROCEDURES Final Result * (ABNORMAL) Prostate specific antigen screen (04/15/2025 10:49 AM EDT) PSA 10.28(H) 0.00 - 4.00 ng/mL LAB CHEMISTRY METHOD 04/15/2025 3:35 PM EDT [facility] Blood Venous blood specimen / Unknown Venipuncture / Unknown 04/15/2025 10:49 AM EDT 04/15/2025 10:49 AM EDT Narrative [facility] - 04/15/2025 3:35 PM EDT The Siemens Advia Centaur Chemiluminescent Immunoassay is used. Results obtained with different assay methods or kits cannot be used interchangeably. Results cannot be interpreted as absolute evidence of the presence or absence of malignant disease. us Tyler Gonzales MD LAB BLOOD ORDERABLES Final Resu lt [facility] [address] [place] [address], [place] [phone] * Lipid panel with reflex to direct LDL (04/15/2025 10:49 AM EDT) Cholesterol 132 0 - 200 mg/dL LAB CHEMISTRY METHOD 04/15/2025 1:55 PM EDT [facility] Triglycerides 58 0 - 150 mg/dL LAB CHEMISTRY METHOD 04/15/2025 1:55 PM EDT [facility] HDL 54 >=40 mg/dL LAB CHEMISTRY METHOD 04/15/2025 1:55 PM EDT [facility] LDL Calculated 66 0 - 100 mg/dL LAB CHEMISTRY METHOD 04/15/2025 1:55 PM EDT [facility] VLDL Cholesterol Hiro 11.6 mg/dL LAB CHEMISTRY METHOD 04/15/2025 1:55 PM EDT [facility] Non HDL Chol. (LDL+VLDL) 78 <145 mg/dL LAB CHEMISTRY METHOD 04/15/2025 1:55 PM EDT [facility] Chol/HDL Ratio 2.4 0.0 - 4.4 LAB CHEMISTRY METHOD 04/15/2025 1:55 PM EDT [facility] Blood Venous blood specimen / Unknown Venipuncture / Unknown 04/15/2025 10:49 AM EDT 04/15/2025 10:49 AM EDT us Tyler Gonzales MD LAB BLOOD ORDERABLES Final Resu lt [facility] [address] [place] [address], [place] [phone] * (ABNORMAL) CBC auto differential (04/15/2025 10:49 AM EDT) [facility] WBC 9.0 4.8 - 10.8 K/mcL LAB HEMETOLOGY METHOD 04/15[facility]2025 1:[facility] RBC 4.50 4.50 - 5.50 M/mcL LAB HEMETOLOGY METHOD 04/15/2025 1:34 PM EDT [facility] Hemoglobin 12.8(L) 13.5 - 17.5 g/dL LAB HEMETOLOGY METHOD 04/15/2025 1:34 PM [facility] Hematocrit 40.5(L) 42.0 - 54.0 % LAB HEMETOLOGY METHOD 04/15/2025 1:34 [facility] MCV 90.0 79.0 - 98.0 FL LAB HEMETOLOGY METHOD 04/15/2025 1:34 PM [facility] MCH 28.4 27.0 - 32.0 pcg LAB HEMETOLOGY METHOD 04/15/2025 1:34 PM [facility] MCHC 31.6(L) 32.0 - 37.0 g/dL LAB HEMETOLOGY METHOD 04/15/2025 1:34 PM [facility] RDW 13.6 11.0 - 15.0 % LAB HEMETOLOGY METHOD 04/15/2025 1:34 PM [facility] Platelets 253 130 - 400 K/mcL LAB HEMETOLOGY METHOD 04/15/2025 1:34 PM [facility] MPV 10.5 7.0 - 11.0 FL LAB HEMETOLOGY METHOD 04/15/2025 1:34 PM [facility] NRBC 0.0 <1.0 % LAB HEMETOLOGY METHOD 04/15/2025 1:34 PM [facility] NRBC Absolute 0.00 <0.10 K/mcL LAB HEMETOLOGY METHOD 04/15/2025 1:34 PM [facility] Neutrophils Relative 57.7 % LAB HEMETOLOGY METHOD 04/15/2025 1:34 PM [facility] Lymphocytes Relative 30.7 % LAB HEMETOLOGY METHOD 04/15/2025 1:34 PM [facility] Monocytes Relative 6.9 % LAB HEMETOLOGY METHOD 04/15/2025 1:34 PM [facility] Eosinophils Relative 4.0 % LAB HEMETOLOGY METHOD 04/15/2025 1:34 PM [facility] Basophils Relative 0.4 % LAB HEMETOLOGY METHOD 04/15/2025 1:34 PM [facility] Immature Granulocytes Relative 0.3 % LAB HEMETOLOGY METHOD 04/15/2025 1:34 PM [facility] Neutrophils Absolute 5.16 1.50 - 7.00 K/mcL LAB HEMETOLOGY METHOD 04/15/2025 1:34 PM [facility] Lymphocytes Absolute 2.75 1.00 - 5.00 K/mcL LAB HEMETOLOGY METHOD 04/15/2025 1:34 PM [facility] Monocytes Absolute 0.62 0.20 - 1.00 K/mcL LAB HEMETOLOGY METHOD 04/15/2025 1:34 PM [facility] Eosinophils Absolute 0.36 0.00 - 0.50 K/mcL LAB HEMETOLOGY METHOD 04/15/2025 1:34 PM [facility] Basophils Absolute 0.04 0.00 - 0.20 K/mcL LAB HEMETOLOGY METHOD 04/15/2025 1:34 PM [facility] Immature Granulocytes Absolute 0.03 0.00 - 0.03 K/mcL LAB HEMETOLOGY METHOD 04/15/2025 1:34 PM EDT [facility] Blood Venous blood specimen / Unknown Venipuncture / Unknown 04/15/2025 10:49 AM EDT 04/15/2025 10:49 AM EDT us Tyler Gonzales MD LAB BLOOD ORDERABLES Final Resu lt Performing Organization Address [facility]/ZIP Co de Phone Number [facility] [address] [place] [address], [place] [phone] * Hemoglobin A1c (04/15/2025 10:49 AM EDT) Hemoglobin A1C 5.7 <6.5 % LAB CHEMISTRY METHOD 04/15/2025 2:27 PM EDT [facility] Mean Bld Glu Estim. 117 mg/dL LAB CHEMISTRY METHOD 04/15/2025 2:27 PM EDT [facility] Blood Venous blood specimen / Unknown Venipuncture / Unknown 04/15/2025 10:49 AM EDT 04/15/2025 10:49 AM EDT us Tyler Gonzales MD LAB BLOOD ORDERABLES Final Resu lt Performing Organization Address [facility] de Phone Number [facility] [address] [place] [address], [place] [phone] * (ABNORMAL) Comprehensive metabolic panel (04/15/2025 10:49 AM EDT) Sodium 143 133 - 145 mmol/L LAB CHEMISTRY METHOD 04/15/2025 1:55 PM EDT [facility] Potassium 4.3 3.5 - 5.5 mmol/L LAB CHEMISTRY METHOD 04/15/2025 1:55 PM EDT [facility] Chloride 108 96 - 110 mmol/L LAB CHEMISTRY METHOD 04/15/2025 1:55 PM EDT [facility] CO2 27 21 - 32 mmol/L LAB CHEMISTRY METHOD 04/15/2025 1:55 PM [facility] Anion Gap 8 3 - 11 LAB CHEMISTRY METHOD 04/15/2025 1:55 PM [facility] Glucose 96 70 - 100 mg/dL LAB CHEMISTRY METHOD 04/15/2025 1:55 PM [facility] BUN 21 5 - 25 mg/dL LAB CHEMISTRY METHOD 04/15/2025 1:55 PM [facility] Creatinine 1.04 0.70 - 1.30 mg/dL LAB CHEMISTRY METHOD 04/15/2025 1:55 PM [facility] eGFR 70 >=60 mL/min/1. 73m2 LAB CHEMISTRY METHOD 04/15/2025 1:55 PM [facility] Comment:Calculation based on the Chronic Kidney Disease Epidemiology Collaboration (CKD-EPI) equation refit without adjustment for race. BUN/Creatinine Ratio 20.2 LAB CHEMISTRY METHOD 04/15/2025 1:55 PM [facility] Calcium 8.3(L) 8.5 - 10.5 mg/dL LAB CHEMISTRY METHOD 04/15/2025 1:55 PM [facility] AST (SGOT) 16 10 - 42 unit/L LAB CHEMISTRY METHOD 04/15/2025 1:55 PM [facility] ALT (SGPT) 18 10 - 60 unit/L LAB CHEMISTRY METHOD 04/15/2025 1:55 PM [facility] Alkaline Phosphatase 88 42 - 121 unit/L LAB CHEMISTRY METHOD 04/15/2025 1:55 PM [facility] Total Protein 6.9 6.0 - 8.0 g/dL LAB CHEMISTRY METHOD 04/15/2025 1:55 PM [facility] Albumin 3.7 3.2 - 5.0 g/dL LAB CHEMISTRY METHOD 04/15/2025 1:55 PM [facility] Total Bilirubin 0.5 0.0 - 1.4 mg/dL LAB CHEMISTRY METHOD 04/15/2025 1:55 PM EDT [facility] Blood Venous blood specimen / Unknown Venipuncture / Unknown 04/15/2025 10:49 AM EDT 04/15/2025 10:49 AM EDT us Tyler Gonzales MD LAB BLOOD ORDERABLES Final Resu lt [facility] [address] [place] [address], [place] [phone] * (ABNORMAL) Urinalysis with reflex microscopic (02/22/2025 1:19 PM EDT) Specific Brea Urine 1.017 1.003 - 1.030 LAB URINALYSIS - AUTOMATED METHOD 02/22/2025 5:47 PM [facility] pH, Urine 6.5 5.0 - 8.0 pH LAB URINALYSIS - AUTOMATED METHOD 02/22/2025 5:47 PM [facility] Leukocytes, Urine Trace(A) Negative LAB URINALYSIS - AUTOMATED METHOD 02/22/2025 5:47 PM [facility] Nitrite, Urine Negative Negative LAB URINALYSIS - AUTOMATED METHOD 02/22/2025 5:47 PM [facility] Protein, Urine Negative <=Trace mg/dL LAB URINALYSIS - AUTOMATED METHOD 02/22/2025 5:47 PM [facility] Glucose, Urine Negative Negative mg/dL LAB URINALYSIS - AUTOMATED METHOD 02/22/2025 5:47 PM [facility] Ketones, Urine Trace(A) Negative mg/dL LAB URINALYSIS - AUTOMATED METHOD 02/22/2025 5:47 PM [facility] Urobilinogen, Urine 1.0 0.2 - 1.0 mg/dL LAB URINALYSIS - AUTOMATED METHOD 02/22/2025 5:47 PM [facility] Bilirubin, Urine Negative Negative LAB URINALYSIS - AUTOMATED METHOD [facility] Blood, Urine Negative Negative LAB URINALYSIS - AUTOMATED METHOD 02/22/2025 5:47 PM [facility] RBC, Urine 1.5 0 - 4 /HPF LAB URINALYSIS - AUTOMATED METHOD 02/22/2025 5:47 PM T [facility] WBC, Urine 3.2 0 - 4 /HPF LAB URINALYSIS - AUTOMATED METHOD 02/22/2025 5:47 PM [facility] Squamous Epithelial, Urine 25 0 - 60 /LPF LAB URINALYSIS - AUTOMATED METHOD 02/22/2025 5:47 PM [facility] Bacteria, Urine Negative Negative /HPF LAB URINALYSIS - AUTOMATED METHOD 02/22/2025 5:47 PM [facility] Hyaline Casts, Urine 1.2 0 - 3 /LPF LAB URINALYSIS - AUTOMATED METHOD 02/22/2025 5:47 PM [facility] Urine Urine specimen obtained by clean catch procedure / Unknown Non-blood Collection / Unknown 02/22/2025 1:19 PM EDT 02/22/2025 1:19 PM EDT us Tyler Gonzales MD LAB URINE ORDERABLES Final Resu lt [facility] [address] [place] [address], * Culture urine (02/22/2025 1:19 PM EDT) Culture, Urine 10,000-49,000 CFU/mL Mixed urogenital juan, no uropathogens present. Suggest repeat specimen if clinically indicated. 02/23/2025 1:56 PM EDT [facility] Urine Urine specimen obtained by clean catch procedure / Unknown Non-blood Collection / Unknown 02/22/2025 1:19 PM EDT 02/22/2025 1:19 PM EDT Tyler Gonzales MD LAB MICROBIOLOGY - GENERAL RAYNA URIOSTEGUIARLENE Final Result [facility] [address] [place] [address], * Diabetes Foot Exam (01/12/2024) Diabetes: Annual Foot Exam Abstracted us Historical Provider HEALTH MAINTENANCE Final Result from Last 3 Months or Most Recently Relevant to Health Maintenance Additional Health Concerns Infection Onset Date Last Indicated ESBL 01/04/2025 01/16/2025 Insurance [place] - [place]IC[place] Advance Directives Documents on File Type Date Recorded Patient Track Sweeper Expl anation Advance Directives and Living Will 04/01/2025 8:46 AM eric edwards 03/16/25 - 03/17/25 Advance Directives and Living Will 12/25/2024 1:54 PM Health Care Proxy Care Teams Wrecker Operator Relationship Specialty Start Date End Date Tyler Gonzales MD [address] [place] [id number] PCP - General Internal Medicine 12/19/24
--- OUTSIDE RECORDS SUMMARY | 2025-05-01 11:58 | XMS_ITS | Clinical Summary ---
Author Organization [employer] Address [address] [place] [address] [address] [place] [address] Care Team Providers Care Solicitor Patent Name Role Phone Unavailable Primary Care Provider Unavailabl e Immunizations Immunization Administration Dates Next Due Influenza, seasonal, injectable, preservative fr ee 07/09/2024 Social History Tobacco Use Types Packs/Day Years Used Date Smoking Tobacco: Never Assessed Sex and Gender Information Value Date Recorded Sex Assigned at Male 07/11/2024 10:49 AM EDT Legal Sex Male 10:48 AM EDT Gender Identity Male 07/11/2024 10:49 AM EDT Sexual Orientation Straight 07/11/2024 10 :49 AM EDT Plan of Treatment Health Maintenance Due Date Last Done Comments Depression Screening 1940 Lipid Panel 1938 SDOH Screening 1938 Alcohol/Substance Use Screening 1950 Tobacco Screening 1950 DTaP/Tdap/Td Vaccines (1 - Tdap) 1957 Pneumococcal Vaccine: 50+ Ye ars (1 of 1 - PCV) 1988 Zoster Vaccines (1 of 2) 1988 RSV Patients and Pa tients Aged 60 years or older (1 - 1-dose 75+ series) 2013 COVID-19 Vaccine ( - 2023-2 5 season) 2024 Influenza Vaccine (#1) 2025 07/09/2024 HIB Vaccines Aged Out No longer eligi [...] patient's age to complete this topic Meningococcal Vaccine Aged Out No gabbi cipriano eligible based on patient's age to complete this topic RSV under 20 months Aged Out No longe r eligible based on patient's age to complete this topic Rotavirus Vaccines Aged Out No longer eligible based on patient's age to complete this topic Insurance [place] [address] [place] [id number]
== END 2025-05-01 12:46 | disposition home or self-care (01) ==
LOC: HO.HSMS 11:03
PROVIDERS: PCP Internal Medicine; Visit Provider Psychiatry & Neurology Neurology
DX: G20.A1 Parkinson's 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, without mention of fluctuations (principal)
CPT/HCPCS: 99214

== ENCOUNTER → 2025-05-01 11:02 | Outpatient (BNVA) | payer MEDICARE, SELFPAY | PROVIDERS: PCP Internal Medicine; Visit Provider Psychiatry & Neurology Neurology | DX: G20.A1 Parkinson's 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, without mention of fluctuations (principal) | CPT/HCPCS: 99212 ==